=== PATIENT | female | born 1935 | race Caucasian/White ===

== ENCOUNTER → 2016-12-02 | Outpatient (CLI) | payer OTHER ==
[~2016-12-02] MED LIST: ADULT LOW DOSE81 MG PO; AMLODIPINE; ASPIR 8181 MG PO; ASPIRIN81 M2 PO; ATENOLOL 25 MG25 M1 PO; ATIVAN0.5 MG PO; AZITHROMYCIN 2250 MG PO; BACLOFEN 10MG T10 MG PO; BIOTIN1 MG PO; CALCIUM 500 +1 EAC5 PO; COUMADIN; DILTIAZEM 24HR120 M2 PO; DILTIAZEM 24HR240 M1 PO; DOXYCYCLINE 10100 M1 PO; ELIQUIS2.5 MG PO; FLEXERIL PO; FLONASE 0.05%50 MCG NASAL; FUROSEMIDE; HYDRALAZINE; IBUPROFEN 200200 M1 PO; K-DUR 20 MEQ T20 MEQ PO; MAG-OX 400 TAB400 M1 PO; MAGNESIUM OXID200 MG; MAGNESIUM OXID200 MG PO; MECLIZINE HCL25 MG PO; MYRBETRIQ25 MG PO; NORCO 5-325 TA1 EACH PO; PLAVIX 75 MG TA75 M1 PO; PREDNISONE 20 M20 MG PO; SYNTHROID; TIZANIDINE HCL4 MG PO; TOPROL; VITAMINC500 PO; ZPAK PO; [UNRECOGNIZED DRUG - CODE] PO
== END ==
LOC: ULTRA 14:22
DX: M79.605 Pain in left leg (principal)

== ENCOUNTER 2016-12-05 16:04 | Emergency (ER) | payer OTHER ==
[~2016-12-05] VITALS: Ht 167.6 cm; Wt 44.5 kg
[2016-12-05 16:40] LABS: HEMATOCRIT 50.6 % (37.0-47.0); HEMOGLOBIN 17.7 gm/dL (12.0-15.0); MCH 36.6 pg (26.0-34.0); MCHC 34.9 % (28.0-37.0); MCV 104.7 fL (80.0-100.0); RBC 4.83 mil/uL (4.20-5.00); WBC 7.4 thou/uL (4.0-11.0)
[2016-12-05 16:48] LABS: CALCIUM 9.1 mg/dL (8.5-10.1); CREATININE 0.7 mg/dL (0.6-1.3); POTASSIUM 3.7 mmol/L (3.5-5.1)
[2016-12-05 16:54] LABS: ALBUMIN 3.9 g/dL (3.4-5.0); TOTAL BILIRUBIN 0.6 mg/dL (<0.1-1.0); TOTAL PROTEIN 7.5 g/dL (6.4-8.2)
[2016-12-05 16:56] LABS: APTT 28.1 Seconds (24.5-32.8); INR 1.1; PROTIME 11.9 Seconds (9.3-11.4)
== END 2016-12-05 17:38 | disposition home or self-care (01) ==
LOC: ER 16:04
PROVIDERS: Emergency Medicine
DX: I77.1 Stricture of artery (principal); I73.9 Peripheral vascular disease, unspecified; F17.210 Nicotine dependence, cigarettes, uncomplicated; F10.99 Alcohol use, unspecified with unspecified alcohol-induced disorder; Z88.5 Allergy status to narcotic agent; Z88.1 Allergy status to other antibiotic agents; Z88.0 Allergy status to penicillin; Z88.2 Allergy status to sulfonamides

== ENCOUNTER → 2016-12-07 | Outpatient (CLI) | payer OTHER | LOC: RAD 01:49 | DX: Z12.31 Encounter for screening mammogram for malignant neoplasm of breast (principal) ==

== ENCOUNTER → 2016-12-08 | Outpatient (CLI) | payer OTHER ==
[~2016-12-08] VITALS: Ht 167.6 cm; Wt 44.0 kg
--- NOTE | ~2016-12-08 | CATHLAB ---
[facility] [employer]ank [employer] [place] [address] INVASIVE PROCEDURE REPORT Name: RICHARDGILL HERNANDEZ Room #: REG CL [facility]#: [id number] Admission: 12/08/16 Attend Phys: Henrry Dwyer, Discharge: Date of : 39 Date of Service: 12/08/16 1225 Report #: [id number] THIS REPORT FOR: //name// CC: Henrry Mobley DATE OF SERVICE: 12/08/2016 NAME OF STUDY: 1. Aortogram, bilateral lower extremity runoff, angiogram. 2. Bilateral renal angiography. INDICATIONS: Peripheral arterial disease. Atrial fibrillation. Coronary artery disease. Tobacco abuse. Previous bilateral SFA stents in May 2015, including drug-coated balloon angioplasty. Onset of right calf and foot pain a couple of weeks ago. Currently, the patient states no pain in either lower extremity. No rest pain or ulcers. Both feet are slightly cool and cyanotic. Motor and sensory are intact. PROCEDURE: Procedure and risk of aortogram and runoff were discussed with the patient and consent obtained. The patient's right groin was prepped and draped in normal sterile fashion. Ultrasound was used to interrogate the right common femoral artery and showed this to be patent. Under ultrasound guidance, access to the right common femoral artery was obtained and a 5-Luxembourgish sheath was placed. Through this, a flush catheter was placed in the abdominal aorta and AP aortogram performed. Catheter was positioned at the aortic bifurcation and both oblique views of the pelvis were obtained. Catheter was positioned to the right external iliac artery and right leg runoff angiogram was obtained. Catheter was exchanged for a visceral catheter, which was placed in the right renal artery and right renal angiogram was obtained. Catheter was placed in left renal artery and left renal angiogram was obtained. Catheter was then positioned to the level of the left common femoral artery and left leg angiogram obtained. Catheter and sheaths were removed and hemostasis obtained using manual pressure. No immediate complications. FINDINGS: AORTOGRAM: There is 1 right and 1 left renal artery. Moderate plaque in the infrarenal abdominal aorta without high grade stenosis. Moderate plaquing in both common iliac arteries, but no evidence of flow limiting stenosis. Moderate plaque throughout both external iliac arteries, more prominent on the right, but again no flow limiting stenosis. The common femoral and profunda femoral arteries are patent bilaterally. RIGHT RENAL ANGIOGRAM: Renal artery shows good patency. No branch vessel stenosis. [address] [address] INVASIVE PROCEDURE REPORT Name: GILL RAMOS Room #: REG [facility]#: [id number] Admission: 12/08/16 Attend Phys: Henrry Dwyer, Discharge: Date of : 39 Date of Service: 12/08/16 1225 Report #: [id number] LEFT RENAL ANGIOGRAM: Moderate plaque causes minimal stenosis at the origin with artery otherwise being widely patent. RIGHT LEG: Previous stent throughout the mid and distal right SFA shows complete occlusion. Stent was initially placed for complete occlusion, so the patient is essentially at baseline. The distal SFA refills and is normal in caliber. The popliteal artery has mild stenosis in its mid portion, but this is not flow limiting. The posterior tibial artery shows complete occlusion throughout. The anterior tibial artery has minimal stenosis in its proximal portion and this shows good patency until its distal most portion. The peroneal artery is a satisfactory size vessel and is patent to the level of the ankle to refills small plantar arteries. LEFT LEG: Occlusion throughout the superficial femoral artery, which refills in its distal portion. The popliteal artery shows mild stenosis, which is not flow limiting. There is satisfactory 3-vessel runoff into the foot. IMPRESSION: Interval development of bilateral superficial femoral artery occlusions within the prior stents as fully reviewed above. The distal superficial femoral arteries refill bilaterally with mild bilateral popliteal stenoses. Two-vessel runoff on the right and 3-vessel runoff on the left as described. Given currently the patient has no rest pain or skin breakdown and also is not complaining of significant claudication symptoms, no further intervention is felt warranted at this time. I did instruct the patient on a walking program to hopefully increase her walking distance. I also recommended she stop smoking. She will follow up with Dr. Floyd at [facility] as previously scheduled. <ELECTRONICALLY SIGNED> By: Henrry Dwyer MD 12/09/16 1036 1225 1355 Henrry Dwyer MD /nt
[2016-12-08 09:39] VITALS: BP 150/93
[2016-12-08 09:48] LABS: HEMATOCRIT 50.4 % (37.0-47.0); HEMOGLOBIN 17.3 gm/dL (12.0-15.0); MCH 36.3 pg (26.0-34.0); MCHC 34.3 % (28.0-37.0); MCV 106.1 fL (80.0-100.0); RBC 4.75 mil/uL (4.20-5.00); RDW 14.1 % (10.5-14.5); WBC 8.6 thou/uL (4.0-11.0)
[2016-12-08 09:55] LABS: CALCIUM 8.8 mg/dL (8.5-10.1); CREATININE 0.9 mg/dL (0.6-1.3); POTASSIUM 4.4 mmol/L (3.5-5.1)
== END ==
LOC: CATH 07:22
PROVIDERS: Nuclear Medicine Nuclear Cardiology
DX: I70.203 Unspecified atherosclerosis of native arteries of extremities, bilateral legs (principal); I70.0 Atherosclerosis of aorta; I48.91 Unspecified atrial fibrillation; Z98.61 Coronary angioplasty status

== ENCOUNTER 2016-12-12 12:10 | Emergency (ER) | payer OTHER ==
[~2016-12-12] VITALS: Ht 167.6 cm; Wt 44.5 kg
--- NOTE | ~2016-12-12 | EKG ---
[address] [address] ELECTROCARDIOGRAM REPORT Name: GILL RAMOS [id number] Admission: 12/12/16 Attend Phys: Discharge: 12/12/16 Date of : 39 Report #: [id number] THIS REPORT FOR: //name// [facility] ED Test Date: 2016-12-12 Test Time: 12:23:01 Pat Name: GILL RAMOS Department: Room: Gender: F [employer]: JOSÉ LUIS : 1935 Requested By: Elmer Watson Order Number: [id number] MD: Jeffrey Cook Measurements Intervals [place] Rate: 89 P: [place]: QRS: 67 QRSD: 65 T: 57 QT: 441 QTc: 537 Interpretive Statements Atrial fibrillation Probable anteroseptal infarct, old Compared to ECG 08/21/2016 19:08:59 No significant changes Electronically Signed On 12-13-2016 8:15:41 [employer] TRA[employer] by Jeffrey Cook [email or web address] <ELECTRONICALLY SIGNED> By: Jeffrey Cook MD, [facility] 12/13/16 0815 1223 22 Jeffrey Cook MD, FACC /EPI
== END 2016-12-12 15:14 | disposition home or self-care (01) ==
LOC: ER 12:10
DX: R20.0 Anesthesia of skin (principal); Z90.710 Acquired absence of both cervix and uterus; Z98.890 Other specified postprocedural states; F17.210 Nicotine dependence, cigarettes, uncomplicated; F10.99 Alcohol use, unspecified with unspecified alcohol-induced disorder; Z88.5 Allergy status to narcotic agent; Z88.1 Allergy status to other antibiotic agents; Z88.0 Allergy status to penicillin; Z88.2 Allergy status to sulfonamides; Z88.8 Allergy status to other drugs, medicaments and biological substances

== ENCOUNTER → 2017-03-03 | Outpatient (CLI) | payer OTHER ==
--- NOTE | ~2017-03-03 | 2DMMODE ---
[facility] [place] [address] 2 D/M-MODE ECHOCARDIOGRAM Name: GILL RAMOS Room #: REG CL [facility]#: [id number] Admission: 03/03/17 Attend Phys: Ubaldo Floyd MD Discharge: Date of : 39 Date of Service: 03/03/17 1027 Report #: [id number] THIS REPORT FOR: //name// APPROVED REPORT Study performed: 03/03/2017 08:47:41 EXAM: Comprehensive 2D, Doppler, and color-flow Echocardiogram Patient Location: Out-Patient Blood Pressure: 101/66 mmHg HR: 80 bpm Rhythm: Atrial Fibrillation Other Information Study Quality: Adequate/Low parasternal window Technically limited study due to thin body habitus and breast implants.. Indications Atrial Fibrillation Hx: CAD, PVD, COPD, HTN 2D Dimensions RVDd: 36.00 mm LVEF(%): 48.56 (>50%) IVSd: 8.49 (7-11mm) LVOT Diam: 18.70 (18-24mm) LVDd: 31.70 mm PWd: 7.49 (7-11mm) LVDs: 24.21 (25-40mm) Aortic Root: 30.90 mm Coker's LVEF: 48.56 % Volumes Left Atrial Volume (Systole) Single Plane 4CH: 60.14 mL Single Plane 2CH: 51.72 mL LA ESV Index: 42.00 mL/m2 Aortic Valve AoV Peak Agapito.: 1.04 m/s AO Peak Gr.: 4.37 mmHg LV Max P.21 mmHg LV Max: 0.74 m/s Mitral Valve MV Decel. Time: 166.27 ms [facility] [place] [address] [place] [address] 2 D/M-MODE ECHOCARDIOGRAM Name: GILL RAMOS Room #: REG [facility]#: [id number] Admission: 03/03/17 Attend Phys: Ubaldo Floyd MD Discharge: Date of : 39 Date of Service: 03/03/17 1027 Report #: [id number] E Max Agapito.: 0.93 m/s Pulmonary Valve PV Peak Agapito.: 0.65 m/s PV Peak Gr.: 1.71 mmHg Tricuspid Valve TR Peak Agapito.: 2.47 m/s RAP Estimate: 10.00 mmHg TR Peak Gr.: 24.37 mmHg RVSP: 34.00 mmHg Left Ventricle The left ventricle is normal size. There is normal LV segmental wall motion. There is normal left ventricular wall thickness. Left ventricular systolic function is normal. LVEF is 50-55%. This study is not technically sufficient to allow evaluation of the LV diastolic function due to atrial fibrillation. Right Ventricle The right ventricle is normal size. The right ventricular systolic function is normal. Atria Left atrium is moderately dilated. Right atrium is moderately dilated. Aortic Valve Aortic valve is thickened and calcified. Trace aortic regurgitation. There is no aortic valvular stenosis. Mitral Valve Mitral valve leaflets are thickened. Mild mitral annular calcification. Mild to moderate mitral regurgitation. Tricuspid Valve The tricuspid valve is normal in structure. There is moderate tricuspid regurgitation. The right atrial pressure is estimated at 10 mmHg. There is mild pulmonary hypertension with an estimated PAP of 34mmHg. Pulmonic Valve The pulmonary valve is normal in structure. Trace pulmonic regurgitation. Great Vessels The aortic root is normal in size. Ascending aorta is not well visualized. Descending aorta is not well visualized. IVC is dilated and collapses >50% with inspiration. [facility] [address] [place] [address] 2 D/M-MODE ECHOCARDIOGRAM Name: GILL RAMOS Room #: REG [facility]#: [id number] Admission: 03/03/17 Attend Phys: Ubaldo Floyd MD Discharge: Date of : 39 Date of Service: 03/03/17 1027 Report #: [id number] Pericardium There is no pericardial effusion. <Conclusion> The left ventricle is normal size. The right ventricle is normal size. Left atrium is moderately dilated. Right atrium is moderately dilated. There is no aortic valvular stenosis. Mild to moderate mitral regurgitation. There is moderate tricuspid regurgitation. The right atrial pressure is estimated at 10 mmHg. There is mild pulmonary hypertension with an estimated PAP of 34mmHg. <ELECTRONICALLY SIGNED> By: Ubaldo Floyd MD 03/03/17 1027 1027 1027 Ubaldo Floyd MD /INF
== END ==
LOC: CV 07:08
DX: I48.91 Unspecified atrial fibrillation (principal); I25.10 Atherosclerotic heart disease of native coronary artery without angina pectoris; I73.9 Peripheral vascular disease, unspecified; J44.9 Chronic obstructive pulmonary disease, unspecified; I10 Essential (primary) hypertension

== ENCOUNTER 2017-04-18 20:31 | Emergency (ER) | payer OTHER ==
[~2017-04-18] VITALS: Ht 167.6 cm; Wt 44.0 kg
[2017-04-18] MEDS ORDERED: CARDIZEM CD180 MG PO (20:41)
[2017-04-18] MEDS ORDERED: FENTANYL PA50 MCG/HR TRANSDERM (21:40)
[2017-04-18] MEDS ORDERED: APAP500 PO (22:29)
== END 2017-04-18 22:56 | disposition home or self-care (01) ==
LOC: ER 20:31
DX: S42.211A Unspecified displaced fracture of surgical neck of right humerus, initial encounter for closed fracture (principal); I48.91 Unspecified atrial fibrillation; F17.210 Nicotine dependence, cigarettes, uncomplicated; Z85.3 Personal history of malignant neoplasm of breast; Z98.890 Other specified postprocedural states; Z90.710 Acquired absence of both cervix and uterus; Z90.89 Acquired absence of other organs; Z88.5 Allergy status to narcotic agent; Z88.6 Allergy status to analgesic agent; Z88.1 Allergy status to other antibiotic agents; Z88.0 Allergy status to penicillin; Z88.2 Allergy status to sulfonamides; Z88.8 Allergy status to other drugs, medicaments and biological substances; W08.XXXA Fall from other furniture, initial encounter; Y93.89 Activity, other specified; Y92.89 Other specified places as the place of occurrence of the external cause; Y99.8 Other external cause status

== ENCOUNTER 2017-04-19 06:29 | Inpatient (IN) | payer OTHER ==
[~2017-04-19] VITALS: Ht 167.6 cm; Wt 45.8 kg
--- NOTE | ~2017-04-19 | HC ---
[facility] [place] [address] CONSULTATION Name: GILL RAMOS Room #: 543-P ADM IN M.R.#: [id number] Admission: 04/19/17 Attend Phys: Jackeline Lyle Discharge: Date of : 39 Report #: [id number] THIS REPORT FOR: //name// CC: Jaime Lyle CHIEF COMPLAINT: Right shoulder pain. HISTORY OF PRESENT ILLNESS: The patient is a 81-year-old female who was admitted through the emergency department at [facility] this morning for increased pain in her right shoulder following a right humeral surgical neck fracture. The patient reports that she fell at home yesterday, she was seen at [facility] where she had x-rays taken and was diagnosed with right shoulder fracture. She was discharged from the emergency department yesterday. She had progressively worsening pain in the right shoulder and was returned to the emergency department today. She was admitted at that point. The patient denies any prior problems with her right shoulder. The patient reports that she lives alone in her own home. ALLERGIES: HYDROCODONE, OXYCODONE, AMOXICILLIN, BELLADONNA, PENICILLIN, PHENOBARBITAL, SULFA. CURRENT MEDICATIONS: Please see medical record, but include fentanyl and acetaminophen. PAST MEDICAL HISTORY: Significant for back pain, AFib, seasonal allergies and hernia. PAST SURGICAL HISTORY: Significant for double mastectomy, hernia repair, hysterectomy, hemorrhoidectomy, tonsillectomy. SOCIAL HISTORY: The patient is a current half pack a day smoker for 20 years. The patient drinks alcohol on occasion. She lives at home alone and ambulates without assistance. PHYSICAL EXAMINATION: VITAL SIGNS: Temperature 36.7 degrees Celsius, blood pressure 137/73, pulse is 92. GENERAL: The patient is awake and alert, in no acute distress. EXTREMITIES: Right upper extremity is mobilized in a sling, this is neurovascularly intact. The patient has minor discomfort in the shoulder when trying to move the fingers and wrist. Right shoulder is tender to palpation. Range of motion not attempted today due to pain. LABORATORY DATA: Hemoglobin 16.1. Glucose 109. X-Ray: Radiographs performed on 04/18 show a fracture of the surgical neck of the proximal humerus. This is non-displaced with mild anterior angulation and [address] [address] CONSULTATION Name: GILL RAMOS Room #: 543-P [facility] IN M.R.#: [id number] Admission: 04/19/17 Attend Phys: Jackeline Lyle Discharge: Date of : 39 Report #: [id number] impaction. ASSESSMENT: Right surgical neck fracture of the proximal humerus. PLAN: Discussed with the patient diagnosis and treatment options. At this point, the radiographs from the emergency department show no displacement of the fracture and we discussed treatment options today. The patient is not interested in operative intervention. We discussed conservative treatment options that would include following the shoulder with serial radiographs to assess fracture healing. We also discussed the potential need for operative intervention if further displacement were to occur at the fracture site. The need for PT/OT was reviewed with the patient as well. We will see the patient 7-10 days post injury in the outpatient clinic for follow up radiographs. <ELECTRONICALLY SIGNED> By: THERESA Lou 04/20/17 1010 1619 0813 THERESA Lou /nt
--- NOTE | ~2017-04-19 | HC ---
[facility] [place] [address] CONSULTATION Name: GILL RAMOS Room #: 543-P [facility] IN M.R.#: [id number] Admission: 04/19/17 Attend Phys: Jackeline Lyle Discharge: 04/20/17 Date of : 39 Report #: [id number] THIS REPORT FOR: //name// CC: Jaime Lyle HISTORY OF PRESENT ILLNESS: The patient is a 81-year-old white female who apparently fell standing up from a couch at home. She was initially seen in the Emergency Department, diagnosed with a humeral surgical neck fracture. She was placed in a sling. Was discharged home. She is a rather anxious lady and apparently did not know to fill her pain medication prescription. She ended up coming back in to [facility] and this time was admitted as she was unable to care for herself. She lives at home alone. Orthopedics has seen her and are recommending continued conservative management with followup at a later date. We are seeing her in rehabilitation medicine consultation. PAST MEDICAL HISTORY: Includes double mastectomy for breast cancer, history of hernia repair, atrial fibrillation, back pain, hemorrhoidectomy, and tonsillectomy. PAST SURGICAL HISTORY: Is as noted above. HABITS: Tobacco, half a pack per day for 20 years, current every day smoker, history of ETOH only on special occasions. MEDICATIONS: Please see the full medication listing. ALLERGIES: She has a history of HYDROCODONE, OXYCODONE, AMOXICILLIN, PENICILLIN, PHENOBARBITAL, SULFA. SOCIAL HISTORY: Lives in a house alone, multilevel 6 steps in, did not utilize gait aids premorbidly. She does have a friend that has been taking her back and forth to the Emergency Department by support. She indicates she does not have any family in the area. REVIEW OF SYSTEMS: She is quite anxious wanting to discharge back home. Did not offer any current complaints of chest pain, shortness of breath or abdominal discomfort. No focal extremity pain complaints. Her shoulder pain appears under control at the current time. PHYSICAL EXAMINATION: GENERAL: She is a small statured, thin 81-year-old white female in no obvious distress. VITAL SIGNS: Temperature 97.4, pulse 65, respirations 16, blood pressure 118/61. NEUROLOGIC: She is alert, pleasant, and anxious. She kept telling me how she has never been through anything like this and she needs to get back home. Her [address] [address] CONSULTATION Name: GILL RAMOS Room #: 543-P [facility] IN M.R.#: [id number] Admission: 04/19/17 Attend Phys: Jackeline Lyle Discharge: 04/20/17 Date of : 39 Report #: [id number] facies appeared to be symmetric. She has functional range of motion and strength of the left upper extremity and bilateral lower extremities. Right upper extremity is in a dontae sling. No swelling of the right hand. She was able to sit to stand for me essentially independently and could ambulate in the room with good balance and no gait aid. ASSESSMENT: A 81-year-old white female with the following problem list: 1. Right humeral surgical neck fracture being held conservatively. 2. Anxiety. 3. Lives alone and has multiple steps. 4. Tobacco abuse. 5. Past history of double mastectomy. 6. Atrial fibrillation. PLAN: The patient does not meet criteria for an acute [address] [place] [address] inpatient rehabilitation stay. We discussed with OT and case management. The patient needs assistance for her ADLs, dressing and darning activities and appears to have decreased insight into her inability to do this with her anxiety. Case management will focus further on the patient's friend and see if further assistance can come in that regard versus looking at other options for her for discharge planning. Thank you for asking us to assist in this patient's care. By: 1025 1837 Henrry Duong MD /nt
[~2017-04-19 06:29] MED LIST changes: +APAP500 PO; +CARDIZEM CD180 MG PO; +FENTANYL PA50 MCG/HR TRANSDERM
[2017-04-19 06:31] VITALS: BP 163/84
[2017-04-19 07:04] LABS: ABSOLUTE NEUTROPHILS 6.5 thou/uL (1.4-8.2); BASOPHILS 0.5 % (0.0-2.0); EOSINOPHILS 0.5 % (0.0-3.0); HEMATOCRIT 47.1 % (37.0-47.0); HEMOGLOBIN 16.1 gm/dL (12.0-15.0); LYMPHOCYTES 19.2 % (24.0-44.0); MCH 36.3 pg (26.0-34.0); MCHC 34.3 g/dL (28.0-37.0); MCV 105.9 fL (80.0-100.0); MONOCYTES 7.3 % (1.0-8.0); PLATELET COUNT 203 thou/uL (150-400); POLYS 72.5 % (36.0-66.0); RBC 4.45 mil/uL (4.20-5.00); RDW 13.8 % (10.5-14.5)
[2017-04-19 07:08] LABS: MANUAL DIFF NO
[2017-04-19 07:14] LABS: CALCIUM 8.9 mg/dL (8.5-10.1); CREATININE 0.7 mg/dL (0.6-1.0)
[2017-04-19 10:01] VITALS: BP 137/73
[2017-04-19 20:20] VITALS: BP 140/100
[2017-04-20] VITALS (8 sets, daily range): BP systolic 100–129; BP diastolic 61–83
== END 2017-04-20 17:49 | disposition home health service (06) | DRG 563 ==
LOC: ER 06:29 → EROBS 07:39 → 5S 09:19
PROVIDERS: Emergency Medicine
DX: S42.211A Unspecified displaced fracture of surgical neck of right humerus, initial encounter for closed fracture (principal); I48.91 Unspecified atrial fibrillation; F17.210 Nicotine dependence, cigarettes, uncomplicated; F41.9 Anxiety disorder, unspecified; Z60.2 Problems related to living alone; W18.39XA Other fall on same level, initial encounter; Y93.89 Activity, other specified; Z85.3 Personal history of malignant neoplasm of breast; Z90.13 Acquired absence of bilateral breasts and nipples; Z90.710 Acquired absence of both cervix and uterus; Z90.49 Acquired absence of other specified parts of digestive tract; Z88.6 Allergy status to analgesic agent; Z88.1 Allergy status to other antibiotic agents; Z88.2 Allergy status to sulfonamides; Z88.0 Allergy status to penicillin; Z88.8 Allergy status to other drugs, medicaments and biological substances; Y92.89 Other specified places as the place of occurrence of the external cause; Y99.8 Other external cause status

== ENCOUNTER → 2017-10-20 | Outpatient (CLI) | payer OTHER | LOC: HYPER 10-19 13:49 | DX: L60.8 Other nail disorders (principal); J44.9 Chronic obstructive pulmonary disease, unspecified; I48.2 Chronic atrial fibrillation; I10 Essential (primary) hypertension; I73.9 Peripheral vascular disease, unspecified; I25.10 Atherosclerotic heart disease of native coronary artery without angina pectoris; F17.210 Nicotine dependence, cigarettes, uncomplicated; Z90.710 Acquired absence of both cervix and uterus; Z72.89 Other problems related to lifestyle ==

== ENCOUNTER → 2017-10-25 | Outpatient (CLI) | payer OTHER | LOC: ULTRA 09:53 | DX: I73.9 Peripheral vascular disease, unspecified (principal); J44.9 Chronic obstructive pulmonary disease, unspecified; I10 Essential (primary) hypertension; I48.2 Chronic atrial fibrillation; M79.605 Pain in left leg; M79.604 Pain in right leg ==

== ENCOUNTER → 2017-12-07 | Outpatient (CLI) | payer OTHER ==
[~2017-12-07] MED LIST changes: +BISACODYL SUPP10 MG RECTAL; +SENNA8.6 MG PO
== END ==
LOC: RAD 01:18
DX: Z12.31 Encounter for screening mammogram for malignant neoplasm of breast (principal)

== ENCOUNTER → 2018-02-02 | Outpatient (CLI) | payer OTHER | LOC: ULTRA 08:50 | DX: I70.203 Unspecified atherosclerosis of native arteries of extremities, bilateral legs (principal); Z88.1 Allergy status to other antibiotic agents; Z88.5 Allergy status to narcotic agent; Z88.8 Allergy status to other drugs, medicaments and biological substances; Z88.0 Allergy status to penicillin; Z88.2 Allergy status to sulfonamides ==

== ENCOUNTER 2018-05-09 15:09 | Emergency (ER) | payer OTHER ==
[~2018-05-09] VITALS: Ht 165.1 cm; Wt 42.6 kg
--- NOTE | ~2018-05-09 | EKG ---
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 : 1935 Requested By: Donovan Silva Order Number: [id number] MD: Jose Angel Field Measurements Intervals [place] Rate: 90 P: [place]: QRS: 83 QRSD: 159 T: 57 QT: 348 QTc: 426 Interpretive Statements Atrial fibrillation Nonspecific intraventricular conduction delay Probable anteroseptal infarct, old Compared to ECG 12/12/2016 12:23:01 Intraventricular conduction delay now present Myocardial infarct finding still present Electronically Signed On 05-10-2018 7:58:49 CDT by Jose Angel Field [email or web address] <ELECTRONICALLY SIGNED> By: Jose Angel Field MD 05/10/18 0758 1704 1704 Jose Angel Field MD /[facility]
[~2018-05-09 15:09] MED LIST changes: -BISACODYL SUPP10 MG RECTAL; -SENNA8.6 MG PO
[2018-05-09 17:23] LABS: URINE BILIRUBIN NEGATIVE (Negative); URINE BLOOD NEGATIVE (Negative); URINE CLARITY CLEAR; URINE COLOR YELLOW; URINE GLUCOSE-RANDOM* NEGATIVE (Negative); URINE KETONES NEGATIVE (Negative); URINE LEUKOCYTES-REFLEX NEGATIVE (Negative); URINE NITRITE-REFLEX NEGATIVE (Negative); URINE PROTEIN (DIPSTICK) NEGATIVE (Negative); URINE SPECIFIC GRAVITY <= 1.005 (1.005-1.035); URINE UROBILINOGEN 0.2 E.U./dl (0.2-1.0)
[2018-05-09 17:23] LABS: ABSOLUTE NEUTROPHILS 5.2 thou/uL (1.4-8.2); BASOPHILS 0.6 % (0.0-2.0); EOSINOPHILS 1.3 % (0.0-3.0); HEMATOCRIT 39.4 % (37.0-47.0); HEMOGLOBIN 13.8 gm/dL (12.0-15.0); LYMPHOCYTES 24.8 % (24.0-44.0); MCH 34.2 pg (26.0-34.0); MCV 97.7 fL (80.0-100.0); MONOCYTES 7.1 % (1.0-8.0); PLATELET COUNT 344 thou/uL (150-400); POLYS 66.2 % (36.0-66.0); RBC 4.03 mil/uL (4.20-5.00); WBC 7.9 thou/uL (4.0-11.0)
[2018-05-09 17:39] LABS: ANION GAP 8 mmol/L (7-16); BUN 15 mg/dL (7-18); CALCIUM 9.2 mg/dL (8.5-10.1); CHLORIDE 103 mmol/L (98-107); CO2 29 mmol/L (21-32); CREATININE 0.9 mg/dL (0.6-1.0); GLUCOSE 99 mg/dL (74-106); SODIUM 140 mmol/L (136-145)
[2018-05-09 17:47] LABS: TROPONIN-I < 0.04 ng/mL (<0.06)
== END 2018-05-09 18:15 | disposition home or self-care (01) ==
LOC: ER 15:09
PROVIDERS: Physician Assistant
DX: R60.0 Localized edema (principal); I48.91 Unspecified atrial fibrillation; Z90.710 Acquired absence of both cervix and uterus; Z90.13 Acquired absence of bilateral breasts and nipples; F17.210 Nicotine dependence, cigarettes, uncomplicated; Z88.5 Allergy status to narcotic agent; Z88.2 Allergy status to sulfonamides; Z88.1 Allergy status to other antibiotic agents

== ENCOUNTER 2018-05-25 17:42 | Emergency (ER) | payer OTHER ==
[~2018-05-25] VITALS: Ht 167.6 cm; Wt 36.3 kg
[2018-05-25] MEDS ORDERED: MYRBETRIQ25 MG PO (18:37)
[2018-05-25 18:41] LABS: ABSOLUTE NEUTROPHILS 5.7 thou/uL (1.4-8.2); BASOPHILS 0.8 % (0.0-2.0); EOSINOPHILS 3.5 % (0.0-3.0); HEMATOCRIT 38.5 % (37.0-47.0); HEMOGLOBIN 13.5 gm/dL (12.0-15.0); LYMPHOCYTES 24.2 % (24.0-44.0); MCH 34.2 pg (26.0-34.0); MCHC 35.2 g/dL (28.0-37.0); MCV 97.3 fL (80.0-100.0); PLATELET COUNT 229 thou/uL (150-400); POLYS 66.5 % (36.0-66.0); RBC 3.96 mil/uL (4.20-5.00); RDW 13.6 % (10.5-14.5); WBC 8.5 thou/uL (4.0-11.0)
[2018-05-25 18:50] LABS: CREATININE 1.1 mg/dL (0.6-1.0); POTASSIUM 3.9 mmol/L (3.5-5.1)
[2018-05-25 18:54] LABS: INR 1.1; PROTIME 11.2 Seconds (9.3-11.4)
[2018-05-25 18:56] LABS: TOTAL BILIRUBIN 0.5 mg/dL (<0.1-1.0); TOTAL PROTEIN 7.9 g/dL (6.4-8.2)
[2018-05-26] MEDS ORDERED: BISACODYL SUPP10 MG RECTAL (08:41)
== END 2018-05-25 19:32 | disposition left against medical advice (07) ==
LOC: ER 17:42
PROVIDERS: Physician Assistant
DX: K92.2 Gastrointestinal hemorrhage, unspecified (principal); I48.91 Unspecified atrial fibrillation; K59.00 Constipation, unspecified; F17.210 Nicotine dependence, cigarettes, uncomplicated; Z92.29 Personal history of other drug therapy; Z85.3 Personal history of malignant neoplasm of breast; Z90.13 Acquired absence of bilateral breasts and nipples; Z90.710 Acquired absence of both cervix and uterus; Z90.89 Acquired absence of other organs; Z88.8 Allergy status to other drugs, medicaments and biological substances; Z88.1 Allergy status to other antibiotic agents; Z88.0 Allergy status to penicillin; Z88.2 Allergy status to sulfonamides

== ENCOUNTER 2018-05-26 07:40 | Emergency (ER) | payer OTHER ==
[~2018-05-26] VITALS: Ht 167.6 cm; Wt 36.3 kg
--- NOTE | ~2018-05-26 | EKG ---
[place] [address] [facility] [place] [place] [address] ELECTROCARDIOGRAM REPORT Name: GILL RAMOS [id number] Admission: 05/26/18 Attend Phys: Discharge: 05/26/18 Date of : 39 Report #: [id number] THIS REPORT FOR: //name// [facility] ED Test Date: 2018-05-26 Test Time: 08:22:10 Pat Name: GILL RAMOS Department: Room: Gender: F Facilities Specialist: [facility] : 1935 Requested By: Arielle Coreas Order Number: [id number] MD: Jeffrey Cook Measurements Intervals [place] Rate: 107 P: [place]: QRS: 80 QRSD: 77 T: 47 QT: 321 QTc: 429 Interpretive Statements Atrial fibrillation Low voltage, extremity leads Probable anteroseptal infarct, old Compared to ECG 05/09/2018 17:04:52 no significant change was found Electronically Signed On 05-28-2018 13:55:41 CDT by Jeffrey Cook [email or web address] <ELECTRONICALLY SIGNED> By: Jeffrey Cook MD, [facility] 05/28/18 1355 1 1 Jeffrey Cook MD, [facility] /EPI
[2018-05-26] MEDS ORDERED: BISACODYL SUPP10 MG RECTAL (08:41)
== END 2018-05-26 09:05 | disposition home or self-care (01) ==
LOC: ER 07:40
DX: K59.00 Constipation, unspecified (principal); I48.91 Unspecified atrial fibrillation; F17.210 Nicotine dependence, cigarettes, uncomplicated; Z98.890 Other specified postprocedural states; Z90.89 Acquired absence of other organs; Z88.5 Allergy status to narcotic agent; Z88.1 Allergy status to other antibiotic agents; Z88.6 Allergy status to analgesic agent; Z88.2 Allergy status to sulfonamides; Z88.8 Allergy status to other drugs, medicaments and biological substances

== ENCOUNTER 2018-05-28 07:06 | Emergency (ER) | payer OTHER ==
[~2018-05-28] VITALS: Ht 167.6 cm; Wt 38.6 kg
[~2018-05-28 07:06] MED LIST changes: +BISACODYL SUPP10 MG RECTAL
[2018-05-28] MEDS ORDERED: SENNA8.6 MG PO (14:27)
== END 2018-05-28 09:34 | disposition left against medical advice (07) ==
LOC: ER 07:06
DX: K56.41 Fecal impaction (principal); F17.210 Nicotine dependence, cigarettes, uncomplicated; I48.91 Unspecified atrial fibrillation; Z85.3 Personal history of malignant neoplasm of breast; Z90.13 Acquired absence of bilateral breasts and nipples; Z90.710 Acquired absence of both cervix and uterus; Z90.89 Acquired absence of other organs; Z88.8 Allergy status to other drugs, medicaments and biological substances; Z88.1 Allergy status to other antibiotic agents; Z88.0 Allergy status to penicillin; Z88.2 Allergy status to sulfonamides

== ENCOUNTER 2018-05-28 12:40 | Emergency (ER) | payer OTHER ==
[~2018-05-28] VITALS: Ht 167.6 cm; Wt 38.1 kg
[2018-05-28] MEDS ORDERED: SENNA8.6 MG PO (14:27)
== END 2018-05-28 14:52 | disposition home or self-care (01) ==
LOC: ER 12:40
DX: K59.00 Constipation, unspecified (principal); M54.9 Dorsalgia, unspecified; F17.210 Nicotine dependence, cigarettes, uncomplicated; I48.91 Unspecified atrial fibrillation; Z90.13 Acquired absence of bilateral breasts and nipples; Z85.3 Personal history of malignant neoplasm of breast; Z90.710 Acquired absence of both cervix and uterus; Z90.89 Acquired absence of other organs; Z88.8 Allergy status to other drugs, medicaments and biological substances; Z88.1 Allergy status to other antibiotic agents; Z88.0 Allergy status to penicillin; Z88.2 Allergy status to sulfonamides

== ENCOUNTER → 2018-08-31 | Outpatient (CLI) | payer OTHER ==
[~2018-08-31] MED LIST changes: +SENNA8.6 MG PO
--- NOTE | ~2018-08-31 | 2DMMODE ---
[facility] [place] [place] [address] 2 D/M-MODE ECHOCARDIOGRAM Name: GILL RAMOS Room #: REG CL [facility]#: [id number] Admission: 08/31/18 Attend Phys: Ubaldo Floyd MD Discharge: Date of : 39 Date of Service: 08/31/18 1444 Report #: [id number] THIS REPORT FOR: //name// APPROVED REPORT Study performed: 08/31/2018 13:14:01 EXAM: Comprehensive 2D, Doppler, and color-flow Echocardiogram Patient Location: Out-Patient Status: routine BSA: 1.43 HR: 86 bpm BP: 120/80 mmHg Other Information Study Quality: Technically Difficult/Adequate Technically limited study due to breast implants and thin body habitus. Indications COPD Atrial Fibrillation CAD Hypertension/HDD 2D Dimensions RVDd: 28.71 mm IVSd: 9.40 (7-11mm) LVOT Diam: 16.86 (18-24mm) LVDd: 29.78 mm PWd: 8.77 (7-11mm) LVDs: 24.09 (25-40mm) Aortic Root: 28.92 mm IVC: 14.00 mm Volumes Left Atrial Volume (Systole) Single Plane 4CH: 58.95 mL Single Plane 2CH: 50.23 mL LA ESV Index: 41.00 mL/m2 Aortic Valve AoV Peak Agapito.: 0.81 m/s AO Peak Gr.: 2.90 mmHg LVOT Max P.05 mmHg LVOT Max V: 0.71 m/s ROLAND Vmax: 1.97 cm2 [facility] [address] [address] 2 D/M-MODE ECHOCARDIOGRAM Name: GILL RAMOS Room #: REG CL [facility]#: [id number] Admission: 08/31/18 Attend Phys: Ubaldo Floyd MD Discharge: Date of : 39 Date of Service: 08/31/18 1444 Report #: [id number] Mitral Valve MV Decel. Time: 138.55 ms MV E Max Agapito.: 0.93 m/s IVRT: 84.20 ms Pulmonary Valve PV Peak Agapito.: 0.67 m/s PV Peak Gr.: 1.80 mmHg Tricuspid Valve TR Peak Agapito.: 2.99 m/s RAP Estimate: 5.00 mmHg TR Peak Gr.: 35.84 mmHg PA Pressure: 41.00 mmHg Left Ventricle The left ventricle is normal size. There is normal left ventricular wall thickness. The left ventricular systolic function is normal. The left ventricular ejection fraction is within the normal range. LVEF is 60-65%. This study is not technically sufficient to allow evaluation of the LV diastolic function due to atrial fibrillation. Right Ventricle The right ventricle is normal size. The right ventricular systolic function is normal. Atria Left atrium is moderately dilated. Right atrium is moderately dilated. Aortic Valve Aortic valve is calcified. Mild to moderate aortic regurgitation. There is no aortic valvular stenosis. Mitral Valve Mild mitral annular calcification. Mitral valve leaflets are mildly thickened. Mild to moderate mitral regurgitation. No evidence of mitral valve stenosis. Tricuspid Valve The tricuspid valve is normal in structure. Moderate tricuspid regurgitation. PAP is estimated at 41 mmHg. Pulmonic Valve Pulmonic valve is not well visualized. Mild pulmonic regurgitation. [facility] [place] [address] 2 D/M-MODE ECHOCARDIOGRAM Name: RICHARDGILL HERNANDEZ Room #: REG [facility]#: [id number] Admission: 08/31/18 Attend Phys: Ubaldo Floyd MD Discharge: Date of : 39 Date of Service: 08/31/181443 Report #: [id number] Great Vessels The aortic root is normal in size. IVC is normal in size and collapses >50% with inspiration. Pericardium There is no pericardial effusion. <Conclusion> The left ventricle is normal size. The left ventricular systolic function is normal. The right ventricle is normal size. Left atrium is moderately dilated. Right atrium is moderately dilated. Mild to moderate aortic regurgitation. Mild to moderate mitral regurgitation. Moderate tricuspid regurgitation. PAP is estimated at 41 mmHg. <ELECTRONICALLY SIGNED> By: Ubaldo Floyd MD 08/31/184 43 1444 Ubaldo Floyd MD /INF
== END ==
LOC: CV 09:39
DX: I08.3 Combined rheumatic disorders of mitral, aortic and tricuspid valves (principal); I10 Essential (primary) hypertension; I48.91 Unspecified atrial fibrillation; I25.10 Atherosclerotic heart disease of native coronary artery without angina pectoris; J44.9 Chronic obstructive pulmonary disease, unspecified

== ENCOUNTER → 2018-12-25 | Outpatient (CLI) | payer OTHER | LOC: RAD 02:03 | DX: Z12.31 Encounter for screening mammogram for malignant neoplasm of breast (principal) ==

== ENCOUNTER 2019-01-26 10:33 | Emergency (ER) | payer OTHER ==
[~2019-01-26] VITALS: Ht 167.6 cm; Wt 45.4 kg
[2019-01-26 12:12] VITALS: BP 123/74
== END 2019-01-26 11:47 | disposition home or self-care (01) ==
LOC: ER 10:33
DX: K11.5 Sialolithiasis (principal); I48.91 Unspecified atrial fibrillation; Z90.13 Acquired absence of bilateral breasts and nipples; Z90.710 Acquired absence of both cervix and uterus; F17.210 Nicotine dependence, cigarettes, uncomplicated; Z88.2 Allergy status to sulfonamides; Z88.0 Allergy status to penicillin; Z88.1 Allergy status to other antibiotic agents; Z88.5 Allergy status to narcotic agent; Z88.8 Allergy status to other drugs, medicaments and biological substances

== ENCOUNTER 2019-02-24 07:24 | Emergency (ER) | payer OTHER ==
[~2019-02-24] VITALS: Ht 167.6 cm; Wt 43.1 kg
[2019-02-24 08:21] LABS: URINE BILIRUBIN NEGATIVE (Negative); URINE BLOOD NEGATIVE (Negative); URINE CLARITY CLEAR; URINE COLOR YELLOW; URINE GLUCOSE-RANDOM* NEGATIVE (Negative); URINE KETONES NEGATIVE (Negative); URINE LEUKOCYTES-REFLEX NEGATIVE (Negative); URINE NITRITE-REFLEX NEGATIVE (Negative); URINE PROTEIN (DIPSTICK) NEGATIVE (Negative); URINE UROBILINOGEN 0.2 E.U./dl (0.2-1.0)
[2019-02-24] MEDS ORDERED: BISACODYL SUPP10 MG RECTAL (08:58)
[2019-02-24 09:13] VITALS: BP 134/58
== END 2019-02-24 09:14 | disposition home or self-care (01) ==
LOC: ER 07:24
PROVIDERS: Emergency Medicine
DX: K59.00 Constipation, unspecified (principal); I48.91 Unspecified atrial fibrillation; Z90.710 Acquired absence of both cervix and uterus; Z90.13 Acquired absence of bilateral breasts and nipples; Z88.0 Allergy status to penicillin; Z88.1 Allergy status to other antibiotic agents; Z88.2 Allergy status to sulfonamides; Z88.5 Allergy status to narcotic agent; Z88.8 Allergy status to other drugs, medicaments and biological substances

== ENCOUNTER 2019-02-24 15:38 | Emergency (ER) | payer OTHER ==
[~2019-02-24] VITALS: Ht 167.6 cm; Wt 40.8 kg
[2019-02-24 16:40] VITALS: BP 149/72
--- NOTE | 2019-02-25 13:42 | EKG ---
[address] [address] ELECTROCARDIOGRAM REPORT Name: GILL RAMOS Room #: DEP [facility] [id number] ������������������ Admission: 02/24/19 ������������������ Attend Phys: Discharge: 02/24/19 ������������������ Date of : 39 Report #: [id number] ����������������������������������������������������������������� [id number] THIS REPORT FOR: //name// [facility] ED Test Date: 2019-02-24 Test Time: 18:35:49 Pat Name: GILL RAMOS Department: Room: Gender: F Burglar Alarm Operator: [email or web address] : 1935 Requested By: Arielle Coreas Order Number: [id number] MD: Jeffrey Cook Measurements Intervals [place] Rate: 85 P: NV: QRS: 75 QRSD: 94 T: 38 QT: 353 QTc: 420 Interpretive Statements Atrial fibrillation Probable anteroseptal infarct, old Compared to ECG 05/26/2018 08:22:10 No significant changes Electronically Signed On 02-25-2019 13:42:05 CDT by Jeffrey Cook [email or web address] ��������������������������������������������� <ELECTRONICALLY SIGNED> ���������������������������������������� By: Jeffrey Cook MD, [facility] ��������������������������������������������� 02/25/19 1342 34 34 Jeffrey Cook MD, FAC /EPI
== END 2019-02-24 19:04 ==
LOC: ER 15:38
DX: R42 Dizziness and giddiness (principal); I48.91 Unspecified atrial fibrillation; Z90.710 Acquired absence of both cervix and uterus; Z90.13 Acquired absence of bilateral breasts and nipples; F17.210 Nicotine dependence, cigarettes, uncomplicated; Z88.0 Allergy status to penicillin; Z88.1 Allergy status to other antibiotic agents; Z88.2 Allergy status to sulfonamides; Z88.5 Allergy status to narcotic agent; Z88.8 Allergy status to other drugs, medicaments and biological substances

== ENCOUNTER → 2020-01-02 | Outpatient (CLI) | payer OTHER ==
[~2020-01-02] MED LIST changes: +TYLENOL WITH CO1 TA1 PO
== END ==
LOC: SJCVCIMAG 09:05
DX: I70.203 Unspecified atherosclerosis of native arteries of extremities, bilateral legs (principal); R22.43 Localized swelling, mass and lump, lower limb, bilateral

== ENCOUNTER → 2020-01-08 | Outpatient (CLI) | payer OTHER | LOC: SJCVC 09:53 | DX: I10 Essential (primary) hypertension (principal); I73.9 Peripheral vascular disease, unspecified; I48.0 Paroxysmal atrial fibrillation; E78.00 Pure hypercholesterolemia, unspecified; I25.10 Atherosclerotic heart disease of native coronary artery without angina pectoris; J44.9 Chronic obstructive pulmonary disease, unspecified; F17.200 Nicotine dependence, unspecified, uncomplicated ==

== ENCOUNTER 2020-01-13 11:44 | Emergency (ER) | payer OTHER ==
[~2020-01-13] VITALS: Ht 167.6 cm; Wt 44.0 kg
[~2020-01-13 11:44] MED LIST changes: -TYLENOL WITH CO1 TA1 PO
[2020-01-13 15:12] VITALS: BP 138/72
[2020-01-13] MEDS ORDERED: TYLENOL WITH CO1 TA1 PO (21:13)
== END 2020-01-13 15:42 | disposition home or self-care (01) ==
LOC: ER 11:44
DX: S50.01XA Contusion of right elbow, initial encounter (principal); S51.812A Laceration without foreign body of left forearm, initial encounter; I48.91 Unspecified atrial fibrillation; F17.210 Nicotine dependence, cigarettes, uncomplicated; Z90.710 Acquired absence of both cervix and uterus; Z88.1 Allergy status to other antibiotic agents; Z88.5 Allergy status to narcotic agent; Z88.0 Allergy status to penicillin; Z88.2 Allergy status to sulfonamides; Z88.8 Allergy status to other drugs, medicaments and biological substances; W18.30XA Fall on same level, unspecified, initial encounter; Y93.89 Activity, other specified; Y92.89 Other specified places as the place of occurrence of the external cause; Y99.8 Other external cause status

== ENCOUNTER 2020-01-13 20:05 | Emergency (ER) | payer OTHER ==
[~2020-01-13] VITALS: Ht 167.6 cm; Wt 44.0 kg
[2020-01-13] MEDS ORDERED: TYLENOL WITH CO1 TA1 PO (21:13)
[2020-01-13 21:30] VITALS: BP 148/82
== END 2020-01-13 21:30 | disposition home or self-care (01) ==
LOC: ER 20:05
DX: S80.12XA Contusion of left lower leg, initial encounter (principal); S80.11XA Contusion of right lower leg, initial encounter; M25.561 Pain in right knee; I48.91 Unspecified atrial fibrillation; F17.210 Nicotine dependence, cigarettes, uncomplicated; Z90.13 Acquired absence of bilateral breasts and nipples; Z90.710 Acquired absence of both cervix and uterus; Z90.49 Acquired absence of other specified parts of digestive tract; Z88.0 Allergy status to penicillin; Z88.1 Allergy status to other antibiotic agents; Z88.2 Allergy status to sulfonamides; Z88.6 Allergy status to analgesic agent; Z88.8 Allergy status to other drugs, medicaments and biological substances; W18.39XA Other fall on same level, initial encounter; Y93.89 Activity, other specified; Y92.89 Other specified places as the place of occurrence of the external cause; Y99.8 Other external cause status

== ENCOUNTER → 2020-01-23 | Outpatient (CLI) | payer OTHER ==
[~2020-01-23] MED LIST changes: +TYLENOL WITH CO1 TA1 PO
== END ==
LOC: RAD 11:09
DX: S22.31XA Fracture of one rib, right side, initial encounter for closed fracture (principal); M25.421 Effusion, right elbow; J90 Pleural effusion, not elsewhere classified; R91.8 Other nonspecific abnormal finding of lung field; J98.4 Other disorders of lung; W19.XXXA Unspecified fall, initial encounter; Y93.89 Activity, other specified; Y92.89 Other specified places as the place of occurrence of the external cause; Y99.8 Other external cause status

== ENCOUNTER → 2020-02-21 | Outpatient (CLI) | payer OTHER | LOC: SJCVC 10:34 | DX: I45.4 Nonspecific intraventricular block (principal); R94.31 Abnormal electrocardiogram [ECG] [EKG]; I10 Essential (primary) hypertension; I48.0 Paroxysmal atrial fibrillation; I25.10 Atherosclerotic heart disease of native coronary artery without angina pectoris; I73.9 Peripheral vascular disease, unspecified; J44.9 Chronic obstructive pulmonary disease, unspecified; M81.0 Age-related osteoporosis without current pathological fracture; Z72.0 Tobacco use ==

== ENCOUNTER 2020-03-12 11:02 | Inpatient (IN) | payer OTHER ==
[~2020-03-12] VITALS: Ht 157.5 cm; Wt 40.8 kg
--- NOTE | ~2020-03-12 | EEG ---
[facility] [place] [address] ELECTROENCEPHALOGRAM Name: GILL RAMOS Room #: 202-P ADM IN M.R.#: [id number] Admission: 03/12/20 Attend Phys: Bill Chakraborty MD Discharge: Date of : 37 Report #: [id number] THIS REPORT FOR: //name// CC: Bill Mobley DATE OF SERVICE: 03/18/2020 This patient is being evaluated for altered mental status. EEG was done by placing the electrode by standard 10-20 system of electrode placement. Both referential and sequential montages were used for recording. Background activity in this patient's EEG is about 5 Hz and 10 microvolts. Photic stimulation is unremarkable. EKG channel demonstrated irregular heart rate. IMPRESSION: Severely abnormal EEG consistent with encephalopathy, dementia or a combination. However, the finding is nonspecific and can occur in multiple other etiologies like effect of psychotropic medication, etc. Clinical correlation is recommended. By: [id number] Juan Go MD /nt
--- NOTE | ~2020-03-12 | HC ---
[facility] [place] [address] CONSULTATION Name: GILL RAMOS Room #: 202-P ADM IN M.R.#: [id number] Admission: 03/12/20 Attend Phys: Bill Chakraborty MD Discharge: Date of : 37 Report #: [id number] THIS REPORT FOR: cc: Jaime Mobley,Juan Morrison MD ~ CC: Bill Mobley DATE OF SERVICE: 03/18/2020 HISTORY OF PRESENT ILLNESS: This is an 84-year-old female patient who is unable to provide any history at all. Nobody who can provide the history is available. I talked to Dr. Perea who consulted me and she updated me on the patient's history. I reviewed the patient's records. It looks like the patient presented to Emergency Room on 03/12/2020 after a fall. She was on anticoagulation by Eliquis for atrial fibrillation. Since then, she had a pretty eventful and a protracted course during the hospitalizations including a significant respiratory difficulty. Even in the Emergency Room, it looks like her oxygen saturation has dropped into 80s. Record also indicates that she has dementia. How bad her dementia is, is not clear. REVIEW OF SYSTEMS: A 14-point review of system was carried out from the records and it looks like this patient has some seasonal allergies and some baseline dementia. She has a history of atrial fibrillation and prior history of breast cancer. She has been seen by multiple physicians including palliative care. I reviewed those notes and it looks like the patient has some expressed gomez in the past, but does not have durable power of clay miner. Reviewing the records, it indicated that she did not want the further testing done even when she came to Emergency Room and she is very reluctant to have more testing even done at that time. PAST MEDICAL HISTORY: Positive for atrial fibrillation. FAMILY HISTORY: Unavailable. SOCIAL HISTORY: Unavailable, but she does not have any durable power of clay miner. PHYSICAL EXAMINATION: Pretty limited. She does not do anything. She keeps her eyes closed and does not follow simple commands. That makes it impossible to do further neurological examination. Her blood pressure is 132/66, pulse is 108. LABORATORY DATA: White count was 10.4. She did have a CT scan of the head on . That was reviewed and that does not appear to be showing any abnormality. She did have a C-spine CT also at that time. Her CT of the chest has [address] [address] CONSULTATION Name: GILL RAMOS Room #: 202-P ADM IN ..#: [id number] Admission: 03/12/20 Attend Phys: Bill Chakraborty MD Discharge: Date of : 37 Report #: [id number] demonstrated severe compression deformity of T3 with a vertical fracture line through the body. IMPRESSION: 1. Severe encephalopathy. That appeared to be the major cause of the patient's problem. Since she does have an underlying dementia, she is going to be predisposed for severe encephalopathy even with mild hypoxia or mild metabolic problems. This patient may not return back to the baseline after those precipitating factors are taken care of. 2. She is predisposed to have a stroke because of her atrial fibrillation and not being on anticoagulation now because of her falls. If any stroke is found that will be the etiology in addition to encephalopathy. 3. She does have a compression fracture of the thoracic spine. I do not know how much problem it is causing because she is pretty unresponsive at the moment. RECOMMENDATIONS: This patient's prognosis is extremely guarded. Prognosis is even more guarded for the quality of the life below which she does not want to live and rather if the conversation in the Emergency Room and with other people is any indication. I think if MRI can be done in this patient that may help because she does have a stroke that will be another factor in favor of the fact that palliative care may be appropriate for her. I will get an EEG done to again look at the baseline activity to further prognosticate her as much as possible. Even otherwise, this patient has baseline dementia. She has a compression fracture of T3 and I am not sure how much problem that has caused and it is extremely unlikely that she will get to the quality of the life she will be acceptable. I will discuss with Dr. Perea again, but my feeling will be to consider making her palliative care. Thank you very much for this referral. By: [id number] Juan Go MD /nt
[2020-03-12 11:03] VITALS: BP 140/65
--- NOTE | 2020-03-12 12:00 | NUR ---
Report received from FEDE Nunez
--- NOTE | 2020-03-12 12:20 | NUR ---
Pt's heart rate goes from 90s to 120 bpm; EKG ordered and completed.
--- NOTE | 2020-03-12 12:23 | NUR ---
C collar that was placed by FEDE Nunez is removed by Dr Linares at this time as patient is pulling at C collar reporting that she wants it removed.
[2020-03-12 12:36] LABS: ABSOLUTE NEUTROPHILS 9.1 thou/uL (1.4-8.2); BASOPHILS 0.4 % (0.0-2.0); EOSINOPHILS 0.4 % (0.0-3.0); HEMATOCRIT 39.3 % (37.0-47.0); HEMOGLOBIN 13.3 gm/dL (12.0-15.0); LYMPHOCYTES 10.1 % (24.0-44.0); MCHC 33.9 g/dL (28.0-37.0); MCV 97.3 fL (80.0-100.0); MONOCYTES 4.3 % (1.0-8.0); PLATELET COUNT 225 thou/uL (150-400); POLYS 84.8 % (36.0-66.0); RBC 4.04 mil/uL (4.20-5.00); RDW 14.4 % (10.5-14.5); WBC 10.7 thou/uL (4.0-11.0)
--- NOTE | 2020-03-12 12:38 | NUR ---
Radiology called to come down and shoot XRAYs again as patient is agreeing.
[2020-03-12 12:40] LABS: ANION GAP 8 mmol/L (7-16); BUN 19 mg/dL (7-18); CALCIUM 8.5 mg/dL (8.5-10.1); CHLORIDE 102 mmol/L (98-107); CO2 27 mmol/L (21-32); CREATININE 0.9 mg/dL (0.6-1.0); GLUCOSE 140 mg/dL (74-106); POTASSIUM 4.1 mmol/L (3.5-5.1); SODIUM 137 mmol/L (136-145)
[2020-03-12 12:50] LABS: ALBUMIN 3.6 g/dL (3.4-5.0); SGOT 42 U/L (15-37); SGPT 39 U/L (30-65); TOTAL BILIRUBIN 0.5 mg/dL (<0.1-1.0); TOTAL PROTEIN 7.1 g/dL (6.4-8.2); TROPONIN-I <0.06 ng/mL (<0.06)
[2020-03-12] MEDS ORDERED: CARTIA XT180 M1 PO (13:50)
[2020-03-12] MEDS ORDERED: ASA81BEC PO (13:50)
--- NOTE | 2020-03-12 14:00 | NUR ---
Katelin, neighbor, here at this time. Speaks to psychiatric mental helth provider.
--- NOTE | 2020-03-12 14:02 | EKG ---
[facility] [place] [address] ELECTROCARDIOGRAM REPORT Name: GILL RAMOS Room #: REG [facility]#: [id number] Admission: 03/12/20 Attend Phys: Discharge: Date of : 39 Report #: [id number] THIS REPORT FOR: cc: Jaime Mobley James A. DO Couchonnal, Luis F. MD ~ THIS REPORT FOR: //name// [facility] ED Test Date: 2020-03-12 Test Time: 12:20:38 Pat Name: GILL RAMOS Department: Room: Gender: F Jacquard Fixer: [email or web address] : 1935 Requested By: Scotty Linares Order Number: [id number] : Jose Angel Field Measurements Intervals [place] Rate: 129 P: [place]: QRS: 74 QRSD: 77 T: -79 QT: 257 QTc: 377 Interpretive Statements Atrial fibrillation Ventricular premature complex Low voltage, extremity and precordial leads Anteroseptal infarct, old Repolarization abnormality, prob rate related Compared to ECG 02/24/2019 18:35:49 Ventricular premature complex(es) now present Low QRS voltage now present Early repolarization now present Myocardial infarct finding still present Electronically Signed On 03-12-2020 14:00:49 CDT by Jose Angel Field [email or web address] <ELECTRONICALLY SIGNED> By: Jose Angel Field MD 03/12/20 1400 1220 1220 Jose Angel Feild MD /EPI
--- NOTE | 2020-03-12 14:05 | NUR ---
Dr. Linares notified that this RN is unable to get accurate pleth for O2 sat. Reports to wrap arms in warm blankets. Bilateral arms wrapped in warm blankets.
--- NOTE | 2020-03-12 14:42 | NUR ---
Dr. Linares repairs lac. to posterior head at this time after cleaning with NS. 2 santos placed.
[2020-03-12 15:47] VITALS: BP 106/53
[2020-03-12 18:24] VITALS: BP 121/61
[2020-03-12 19:21] VITALS: BP 117/55
[2020-03-13 02:56] VITALS: BP 106/64
--- NOTE | 2020-03-13 04:49 | NUR ---
ASSUMED PT CARE AT 1900. PTIS DROWSY AND CONFUSED. NOT RESPONDING TO QUESTIONS. RIGHT TIBIA FRACTURE WITH SPLINT, HEAD LARCERATION. NO SIGN OF DISTRESS NOTED. PAIN MED ADMINISTERED TO PT. ADMISSION EDUCATION COMPLETED. PT IS IN AFIB, CONTINOUS CARDIZEM DRIP. STILL IN AFIB BUT CONTROLLED. FALL PRECAUTION IN PLACE. NO ACUTE EVENTS OVERNIGHT. CONTINUE TO MONITOR PT. NO FURTHER NEEDS AT THIS TIME.
[2020-03-13 05:35] LABS: HEMATOCRIT 34.8 % (37.0-47.0); HEMOGLOBIN 11.9 gm/dL (12.0-15.0); MCH 33.6 pg (26.0-34.0); MCHC 34.2 g/dL (28.0-37.0); MCV 98.3 fL (80.0-100.0); RBC 3.54 mil/uL (4.20-5.00); RDW 14.3 % (10.5-14.5); WBC 11.7 thou/uL (4.0-11.0)
[2020-03-13 05:48] LABS: CALCIUM 8.2 mg/dL (8.5-10.1); CREATININE 1.2 mg/dL (0.6-1.0); POTASSIUM 4.4 mmol/L (3.5-5.1)
--- NOTE | 2020-03-13 07:05 | NUR ---
PATIENT WITH A TIBIA FX, AWAITING ORTHO CONSULT. WILL PLACE ON HOLD UNTIL AFTER CONSULT AND NEW ORDERS.
[2020-03-13 07:30] VITALS: BP 113/77
--- NOTE | 2020-03-13 10:50 | NUR ---
cm tried x 2 to call pt in room. dick spoke with bedside nurse who reported pt is very confused and prbably not picking up the phone. will try pt listed contacted.
[2020-03-13 11:30] VITALS: BP 104/73
[2020-03-13 16:30] VITALS: BP 100/70
[2020-03-13 18:39] LABS: BE(vivo) -0.5 mmol/L (-2 to +3); HCO3 22.3 mmol/L (22.0-26.0); pH 7.475 (7.360-7.450); sO2 88.6 % (92.0-98.0)
[2020-03-13 18:41] LABS: PO2 50.4 mmHg (80.0-100.0)
--- NOTE | 2020-03-13 19:30 | NUR ---
ASSUMED CARE PT SHIFT CHANGE. ASSESSMENTS CHARTED--PT REFUSED NOON ASSESSMEMT. MEDS GIVEN PER JAN. PT DID NOT C/O PAIN. VSS EXCEPT FOR LOW O2. AT APPROX 1630 PT O2 SATS DROPPED TO 70S, PT YELLING AND EXHIBITING COMBATIVE BEHAVIOR. DR KLEIN ON UNIT AT THE TIME AND ORDERED WRIST RESTRAINTS, PT WAS ATTEMPTING TO SWING AT NURSES, WELL PULL OFF HER O2 CANNULA. DR LORD NOTIFIED--ORDERS RECEIVED. CT CHEST ORDERED TO R/O PE--REFER TO RESULTS. PT HR ELEVATED AND INTO AFIB RVR. CARDIOLOGY NOTIFIED--ORDERS RECEIVED. ABG ORDERED AND PO2 CRITICAL LOW, PHYSICIAN NOTIFIED. NO NEW ORDERS. PT SEEN BY DR KNIGHT AND ORDERS PUT IN. PT CONTINUES TO BE VERY CONFUSED, AGITATED, ANXIOUS AND IRRITABLE. PT SEEN BY ORTHO THIS AM--PLASTER CAST REMOVED AND NEW BRACE APPLIED PER ORDERS. PT CURRENTLY RESTING IN BED, RESTRAINTS REMAIN INTACT. PT INCONTINENT-- SKIN AND BED CHECKED FREQUENTLY. PT REFUSED MOST OF MEALS TODAY, DID NOT WANT TO EAT OR DRINK SUPPLEMENTS. REPORT GIVEN TO [facility] NURSE.
[2020-03-13 20:32] VITALS: BP 132/72
--- NOTE | 2020-03-13 23:06 | HC ---
[facility] [place] [address] CONSULTATION Name: GILL RAMOS Room #: 201-P ADM IN M.R.#: [id number] Admission: 03/12/20 Attend Phys: Bill Chakraborty MD Discharge: Date of : 37 Report #: [id number] THIS REPORT FOR: cc: Jaime Mobley James A. DO Kerstein, Andrew H. DO ~ CC: Bill Mobley DATE OF SERVICE: 03/12/2020 EMERGENCY ROOM CONSULTATION EMERGENCY ROOM ATTENDING: Scotty Linares MD CONSULTING PSYCHIATRIST: Bill Lozano DO REASON FOR CONSULTATION: Capacity to make decisions given the patient's statements, she does not want to be admitted to the hospital and does not want Cardizem for stabilization of atrial fibrillation with rapid ventricular response. SOURCES OF INFORMATION: Interview of patient. Collateral from her longtime friend, Emergency Room records CHIEF COMPLAINT: Unspecified. HISTORY OF PRESENT ILLNESS: An 84-year-old female brought to the Emergency Room here at [facility]. The patient was brought by ground EMS. She presented to the ER after a fall. She is on Eliquis for atrial fibrillation. She has 2 cm laceration to the back of her head, complains of right leg pain. She stated the pain starts above her knee and radiates down rest of her legs. She states that she was going up some stairs when she fell and hit the back of her head and believes that she also twisted her right leg. States that she remembers falling. She does not remember crawling to the phone. She is unsure if she had a loss of consciousness. Notes that she has had pain in her right leg in the past, but "not like this." To the ER physician she denied chest pain, neck pain, nausea, vomiting, focal weakness or visual changes. On interview in the ER room 10, patient was somewhat difficult to arouse, had to rub her shoulder and sternum. She was able to state who she was, it was Tuesday, it was February. She stated the year was 2009 and the date was . I questioned her about her injuries, namely her fracture and her heart rate. She stated to me that she wanted to . When I asked if she would be admitted to the hospital, she said she wanted to go home. The patient kept drifting off to sleep during the questioning, nurse told me she got 2 mg of morphine IV, approximately an hour and a half [place] [address] CONSULTATION Name: GILL RAMOS Room #: 201-P ADM IN M.R.#: [id number] Admission: 03/12/20 Attend Phys: Bill Chakraborty MD Discharge: Date of : 37 Report #: [id number] PAST HISTORY: From the ER, double mastectomy, breast cancer. SURGICAL HISTORY: Hernia repair, hysterectomy, hemorrhoidectomy, tonsillectomy. SOCIAL HISTORY: Smoker, states she was just smoking half pack per day for 20 years. MEDICAL HISTORY: Atrial fibrillation, back pain. HOME MEDICATIONS: Include diltiazem 180 mg p.o. daily, aspirin 81 mg p.o. daily, apixaban 2.5 mg twice per day. ALLERGIES: HYDROCODONE, OXYCODONE, PROPOXYPHENE, AMOXICILLIN, BELLADONNA, PENICILLINS, PHENOBARBITAL, SULFA. REVIEW OF SYSTEMS: From the ER, CONSTITUTIONAL: Negative for chills and fever. HEENT: Negative for ear pain and hearing loss. RESPIRATORY: Negative for cough. CARDIOVASCULAR: Negative for chest pain. GASTROINTESTINAL: Negative for abdominal pain, nausea and vomiting. GENITOURINARY: Negative for dysuria. MUSCULOSKELETAL: Negative for back pain and neck pain. SKIN: Negative for rash. NEUROLOGICAL: Negative for headaches. PSYCHIATRIC: Positive for confusion VITAL SIGNS: In the ER were, O2 sat 100, BP 140/65, temperature 36.4, pulse 62, weight 45.36 kilos. Her BMI is low at 18.3. PHYSICAL EXAMINATION: Deferred to the Emergency Medicine physician. She was supine on a gurney in the ER when I saw her. Her EKG showed AFib with RVR, rate 129, normal axis. LABORATORY DATA: Sodium 137, potassium 4.1, chloride 102, bicarbonate 27, anion gap 8, BUN 19, creatinine 0.9, estimated GFR 60, glucose 140, calcium 8.5, total bilirubin 0.5, AST 42, ALT 39, alkaline phosphatase 78. Troponin less than 0.06. Total protein 7.1, albumin 3.6. White count 10.7, H and H 13.3 and 39.3, platelet count 225. CT of the head was read as negative. CT scan of the C-spine without contrast showed disk degeneration, no acute cervical spine fracture and no T3 anterior compression fracture. X-ray of the femur showed proximal tibial mildly comminuted fracture with impaction and intra-articular extension, so that is to the right. [facility] [address] [place] [address] CONSULTATION Name: GILL RAMOS Room #: 201-P ADM IN M.R.#: [id number] Admission: 03/12/20 Attend Phys: Bill Chakraborty MD Discharge: Date of : 37 Report #: [id number] MENTAL STATUS EXAMINATION: This is a well-developed, elderly, appearing disheveled female appearing at least stated age. Attention limited. Concentration limited. Speech slow, soft. Thought process linear and limited. Thought content, fair poverty of thought. Psychomotor retardation. No psychomotor agitation. Denied SI or HI. Denied auditory, visual, or tactile hallucinations. Memory not formally tested, but suspect to be impaired. Insight limited. Judgment impaired. Fund of knowledge, no greater than average. FORMULATION: An 84-year-old female brought by EMS for a fall. The patient had a complication of a run of AFib with RVR, which she has historically. DIAGNOSES: At this time, delirium secondary to general medical condition, namely fall, atrial fibrillation with RVR, medication effect, could not exclude underlying major neurocognitive disorder. The patient has clearly gait difficulty and a right tibial fracture, atrial fibrillation. RECOMMENDATIONS: At this time, the patient does not have capacity to make healthcare or general financial decisions. She has a DPOA. It should be enacted. Lady presented with a long-time friend, states she was the DPOA, but did not have the paperwork. At this time, I recommend the medically treating physicians utilize parens patriae doctrine to medically stabilize the patient including the need for surgery, inpatient medical hospitalization. Given her delirium I cannot make a diagnosis of a mood disorder at this time. Time spent on interview, review of records, coordination of care of this patient is in the 40-minute range. <ELECTRONICALLY SIGNED> By: Bill Lozano, 03/13/20 2306 1415 1530 Bill Lozano, /nt
[2020-03-14] VITALS (11 sets, daily range): BP systolic 118–134; BP diastolic 55–75
--- NOTE | 2020-03-14 03:14 | NUR ---
ASSUMED PT CARE AT 1900. PT IS CONFUSED. PT IS IN RESTRAINTS. PT IS AGITATED AND COMBATIVE. OXYGEN SATURATION IS LOW, HIGH FLOW OXYGEN NOTED. LOW EXTREMITY IMMOBILIZER IN PLACE. PAIN MED ADMINISTERED. ASSESSMENT COMEPLETED AND DOCUMENTED. O2 SATS STABLE ON LIGHT FLOW OXYGEN. CONTINUE TO MONITOR, NO FURTHER NEEDS AT THIS TIME.
[2020-03-14 04:37] LABS: HEMATOCRIT 34.5 % (37.0-47.0); HEMOGLOBIN 11.9 gm/dL (12.0-15.0); MCH 33.5 pg (26.0-34.0); MCHC 34.4 g/dL (28.0-37.0); MCV 97.4 fL (80.0-100.0); RBC 3.54 mil/uL (4.20-5.00); RDW 14.4 % (10.5-14.5)
[2020-03-14 05:09] LABS: ALBUMIN 3.1 g/dL (3.4-5.0); CALCIUM 8.6 mg/dL (8.5-10.1); CREATININE 0.8 mg/dL (0.6-1.0); POTASSIUM 4.1 mmol/L (3.5-5.1); TOTAL BILIRUBIN 0.8 mg/dL (<0.1-1.0); TOTAL PROTEIN 6.6 g/dL (6.4-8.2)
[2020-03-14 06:34] LABS: BE(vivo) -1.1 mmol/L (-2 to +3); HCO3 22.2 mmol/L (22.0-26.0); PCO2 32.6 mmHg (35.0-45.0); PO2 65.1 mmHg (80.0-100.0); pH 7.451 (7.360-7.450); sO2 93.9 % (92.0-98.0)
--- NOTE | 2020-03-14 09:52 | NUR ---
cm called and left message with sheeba friend la nena, no answer , left message requested call back, need to see if she found copy of pt healthcare dir. pt on high flow O2 that she was not on yesterday. will cont following as needed for dc needs, passed on information to that pt friend stated yesterday she been going out in community and not taking precaution during this pandemic pritchard.
--- NOTE | 2020-03-14 10:11 | 2DMMODE ---
[facility] [place] [address] 2 D/M-MODE ECHOCARDIOGRAM Name: GILL RAMOS Room #: 201-P ADM IN M.R.#: [id number] Admission: 03/12/20 Attend Phys: Bill Chakraborty MD Discharge: Date of : 37 Report #: [id number] THIS REPORT FOR: cc: Jaime Mobley James A. DO Lundgren, Craig H. MD [facility] ~ APPROVED REPORT Study performed: 03/14/2020 08:33:39 EXAM: Comprehensive 2D, Doppler, and color-flow Echocardiogram Patient Location: Bedside Room #: 201 Status: routine BSA: 1.42 HR: 117 bpm BP: 132/70 mmHg Rhythm: Atrial Fibrillation Other Information Study Quality: Poor/not all measurements taken Technically limited study due to highly combative and uncooperative patient. Breast implants. Indications Atrial Fibrillation Hx: Afib, COPD, HTN. Aortic Valve AoV Peak Agapito.: 1.50 m/s AO Peak Gr.: 8.94 mmHg Tricuspid Valve TR Peak Agapito.: 3.33 m/s RAP Estimate: 10.00 mmHg TR Peak Gr.: 44.46 mmHg PA Pressure: 54.00 mmHg Left Ventricle The left ventricle is normal size. Regional wall motion is not well visualized but grossly normal. There is normal left ventricular wall thickness. Left ventricular systolic function is normal. LVEF is 65%. This study is not technically sufficient to allow evaluation of the LV diastolic function. [facility] [address] [place] [address] 2 D/M-MODE ECHOCARDIOGRAM Name: GILL RAMOS Room #: 201-P ADM IN M.R.#: [id number] Admission: 03/12/20 Attend Phys: Bill Chakraborty MD Discharge: Date of : 37 Report #: [id number] Right Ventricle Right ventricle is not well visualized. Function appears normal. The right ventricular systolic function is normal. Atria Left atrium is dilated. Right atrium is dilated. Aortic Valve Aortic valve is mildly calcified. Mild aortic regurgitation. There is no aortic valvular stenosis. Mitral Valve The mitral valve is normal in structure. Moderate mitral regurgitation. No evidence of mitral valve stenosis. Tricuspid Valve The tricuspid valve is normal in structure. Severe tricuspid regurgitation. Estimated PAP is 55mmHg. Pulmonic Valve The pulmonary valve is normal in structure. Great Vessels IVC is normal in size and collapses <50% with inspiration. Pericardium There is no pericardial effusion. <Conclusion> Technically difficult study Left ventricular systolic function is normal. LVEF is 65%. Both atria are dilated. Aortic valve is mildly calcified. Mild aortic regurgitation, no stenosis. The mitral valve is normal in structure. Mild-moderate mitral regurgitation. The tricuspid valve is normal in structure. Severe tricuspid regurgitation. Estimated pulmonary artery pressure of 55mmHg. There is no pericardial effusion. <ELECTRONICALLY SIGNED> By: Jeffrey Cook MD, FACC 03/14/20 1009 1009 1009 Jeffrey Cook MD, FACC /INF
--- NOTE | 2020-03-14 11:24 | NUR ---
PT CARE ASSUMED AT SHIFT CHANGE. PT ASSESSMENT CHARTED. PT MEDICATION CHARTED. PT RESTRAINED, Q2 CHECKS. COMBATIVE BEHAVIOR PT PULLING AT ITEMS IN REACH. IV THERAPY CONTACTED FOR PULLED IV, DIFFICULT STICK. PT TO BE R/O COVID PER DR. JACOME. PT TRANSFERRED TO ICU 239. PT HIGH FLOW O2 AT 14 LPM. CONT. POX.
--- NOTE | 2020-03-14 13:17 | NUR ---
ASSUMED CARE OF PT AT 1120. PT AGITATED AND CONFUSED TOWARDS STAFF. BILATERAL SOFT WRIST RESTRAINTS IN PLACE. RIGHT UPPER MIDLINE PLACED BY IV ACCESS TEAM. PT IN A-FIB/RVR CARDIOLOGY AWARE. PT ON 14 LITERS OF 02 VIA NASAL CANNULA HOWEVER, DIFFICULT TO GET AN ACCURATE SATURATION READING ON MONITOR DUE TO PT'S CONSTANT MOVEMENT.HAD TO GIVE 0.5 MG DOSE OF LORAZOPAM EARLIER THAN SCHEDULED DUE TO AGITATION AND NEED FOR THE PT TO STAY STILL POSSIBLE WHILE INSERTION OF MIDLINE. NO BM TODAY, LAST BM UNKNOWN.
--- NOTE | 2020-03-14 13:53 | NUR ---
Call back rec'd from pt's friend and neighbor Katelin Avila. She is dropping a copy of the pt's living trust and health care directive off to security. Security notified to take it RN in ICU to be placed in the medical record. She is going to go over the pt's home later today and look again as she thought there was a DPOA for HC document as well with her listed as the agent. She will let us know if she is able to locate it and also bring it up to the hospital. ICU staff and the attending updated as well.
--- NOTE | 2020-03-14 14:07 | NUR ---
VASCULAR ACCESS CONSULTED FOR PICC PLACEMENT. AFTER REVIEW OF MEDS,HISTORY ,LABS. PT HAS HX DOUBLE MASTECTOMY YEARS AGO, SHE ONLY HAS IV PUSH MEDS ORDERED. SO MIDLINE IS MORE APPROPRIATE. PT IS COMBATIVE SO ML IS SAFEST.ALSO SHE HAS PULLED OUT NUMEROUS PIV'S. MARIAH BRACHIAL WAS WIDELY PATENT WITH USG. 4FR POWER MIDLINE TRIMMED TO 13CM INSERTED TO 0CM WITH BRISK BR. PT TOLERATED WELL. ML RELEASED FOR IMMEDIATE USE PER PROTOCOL TO ROGER MISTRY
--- NOTE | 2020-03-14 17:13 | NUR ---
PT TO BE PLACED ON HOLD FROM P.T. DUE TO CHANGE IN PULMONARY STATUS AND SUBSEQUENT TX TO ICU WHILE CO-VID INFECTION BEING RULED OUT. REQUEST NEW ORDERS WHEN APPROPRIATE.
[2020-03-15] VITALS (19 sets, daily range): BP systolic 109–133; BP diastolic 48–82
[2020-03-15 04:58] LABS: BE(vivo) -0.6 mmol/L (-2 to +3); HCO3 21.3 mmol/L (22.0-26.0); PO2 59.7 mmHg (80.0-100.0); pH 7.515 (7.360-7.450); sO2 93.6 % (92.0-98.0)
--- NOTE | 2020-03-15 05:40 | NUR ---
SLEPT MOST OF SHIFT. WHEN PATIENT BECOMES AGITATED AND IMPULSIVE ATIVAN AND MOROPHING GIVEN WITH NOTED RELIEF. BRACE TO RIGHT KNEE REMAINS IN PLACE. PATIENT TOLERATING O2 AT 6L/HFNC WHEN NOT AGITATED. WORKING ON GOALS AND PLAN OF CARE FOR NOC. RADHA GTT STARTED FOR AFIB HR >120'S. TELEMETRY 90'S AT PRESENT TIME. PROGRESSING SLOWLY TOWARDS DISCHARGE GOALS. CONTINUE TO ASSES CLOSELY.
[2020-03-15 06:28] LABS: ABSOLUTE NEUTROPHILS 8.5 thou/uL (1.4-8.2); BASOPHILS 0.2 % (0.0-2.0); EOSINOPHILS 0.1 % (0.0-3.0); HEMATOCRIT 30.4 % (37.0-47.0); HEMOGLOBIN 10.5 gm/dL (12.0-15.0); LYMPHOCYTES 10.2 % (24.0-44.0); MCH 33.7 pg (26.0-34.0); MCHC 34.7 g/dL (28.0-37.0); MCV 97.3 fL (80.0-100.0); MONOCYTES 6.4 % (1.0-8.0); PLATELET COUNT 157 thou/uL (150-400); POLYS 83.1 % (36.0-66.0); RBC 3.12 mil/uL (4.20-5.00); WBC 10.2 thou/uL (4.0-11.0)
[2020-03-15 06:46] LABS: ALBUMIN 2.8 g/dL (3.4-5.0); CALCIUM 7.9 mg/dL (8.5-10.1); CREATININE 0.7 mg/dL (0.6-1.0); POTASSIUM 3.6 mmol/L (3.5-5.1); TOTAL PROTEIN 5.7 g/dL (6.4-8.2)
--- NOTE | 2020-03-15 17:11 | NUR ---
PT ASSESSED, VSS, VERY DROWSY, BUT OPENS EYES BRIEFLY TO VERBAL COMMANDS. PT MORE ALERT AROUND 1300, STATED "GET ALL THESE THINGS OFF ME!" CALLED NURSE CHOICE WORDS. PT LATER REPLIED TO THE PAIN QUESTION AND SAID SHE WAS HAVING PAIN, MED GIVEN. WILL MONITOR. UPDATE GIVEN TO DPOA, ANI VASQUEZ.
[2020-03-16] VITALS (10 sets, daily range): BP systolic 110–123; BP diastolic 49–71
--- NOTE | 2020-03-16 06:42 | NUR ---
ASSUMED CARE OF PATIENT AT 1900. ASSESSMENTS COMPLETED. PATIENT CONFUSED, ALERT TO SELF ONLY. AFIB ON MONITOR WITH CARDIZEM GTT AND HEART RATE 88-120, PRIMARILY IN LOW 100'S. PATIENT ON NASAL CANULA WITHOUT ANY SIGNS OF DISTRESS IN BREATHING AND O2 SAT 95%+. RUBIO PATENT. UNKNOWN LAST BOWEL MOVEMENT. PATIENT TAKING MORPHINE FOR PAIN, WITH IMPROVEMENT DEMONSTRATED BY PATIENT SLEEPING. PATIENT TO CONTINUE WITH POC.
[2020-03-16 12:54] LABS: CALCIUM 8.2 mg/dL (8.5-10.1); CREATININE 0.7 mg/dL (0.6-1.0); POTASSIUM 3.1 mmol/L (3.5-5.1)
--- NOTE | 2020-03-16 17:57 | NUR ---
PT KNOWS HER NAME , BUT SHE IS CONFUSED AND SHE STILL TRY TO MOVE HER IV LINE AND O2 TUBE, PT IS ON SOFT RESTRAINT AT BOTH WRISTS, PT IS CONTINUING O2 6L/MIN /NC, AND DILTIAZEM IV TITRATE RATE AT 10MG/10ML/HR-15MG/15ML/HR TO KEEP HR 80-100, PT'S VS ARE STABLE , RN HAS CALLED DR FOR LOW BS (63) AND LOW POTASSIUM 3.1 AND LOW MAGESIUM 1.5 , NEW ORDER RECEIVED, RN WILL REPORT TO NEXT SHIFT TO KEEP EYE ON. RN HAS REPORTED DR ABOUT PT REFUSED PO MEDICATIONS AND REFUSE D DRINKING AND EATING .
[2020-03-16 23:01] LABS: MAGNESIUM 2.2 mg/dL (1.8-2.4); POTASSIUM 3.5 mmol/L (3.5-5.1)
[2020-03-17] VITALS (16 sets, daily range): BP systolic 93–132; BP diastolic 48–71
--- NOTE | 2020-03-17 06:44 | NUR ---
ASSESSMENTS CHARTED, MEDS CHARTED GIVEN. PATIENT RESTING IN BED DURING SHIFT. CONFUSED AND AGITATED AT TIMES RIGHT LOWER EXTREMITY IN IMMOBILIZER. ALKA IN BACK OF HEAD. ON CARDIZEM DRIP FOR AFIB. IN RESTRAINTS. FALL PRECAUTIONS IN PLACE.
[2020-03-17 09:56] LABS: CALCIUM 8.4 mg/dL (8.5-10.1); CREATININE 0.7 mg/dL (0.6-1.0); MAGNESIUM 2.2 mg/dL (1.8-2.4); POTASSIUM 3.5 mmol/L (3.5-5.1)
--- NOTE | 2020-03-17 16:17 | NUR ---
PT STILL IS CONFUSED, PT IS CONTINUING O2 6-7L/MIN/NC TO KEEP O2SAT AT 93-97%, PT IS CONTINUING IV DRIP DILTIAZEM TITRATED AT 10-15MG/HR TO KEEP HR AT 80-100, PT 'S PAIN AND AGITATION CAN CONTROL BY MEDICATIONS AT MOST OT TIME, PT HAS BILATERAL WRIST SOFT RESTRAINT FOR SAFTY, PT'S VS ARE STABLE AT THIS TIME.PT IS GOING TO TRANSFER TO CCU UNIT WHEN UNIT BED IS AVILABLE.
--- NOTE | 2020-03-17 16:36 | NUR ---
SW reviewed chart and spoke with attending physician. Pt is in restraints. Palliative care consult ordered. Discussed with palliative care physician. Pt has a living trust document which appoints her friend, Katelin, as her trustee. No healthcare directive on file. SW contacted Medical Records, who faxed the living trust document. [facility] is following to assist as needed with discharge planning.
--- NOTE | 2020-03-18 00:41 | NUR ---
RECEICED PT FROM ICU 1899 (03/17). PT CONFUSED. ORIENTEDX1. SOFT BP. CARDIZEM GTT 15ML/HR. PT IN RESTRAINTS. HAND OFF REPORTED GIVEN TO RN,. NOTIFIED ON COMING RN OF SOFT BP AND CARDIZEM GTT. RAILWAY SIGNAL OPERATOR WAS MOVED TO 3W. RAILWAY SIGNAL OPERATOR LEFT PT IN STABLE CONDITION.
[2020-03-18 03:49] VITALS: BP 128/54
--- NOTE | 2020-03-18 06:16 | NUR ---
ASSUMED CARE OF PT APPROX 2130HRS. PT IS CONFUSED AGITATED AT TIMES. PT ON SOFT RESTRAINTS. CONTINUES ON CARDIZEM GTT. FOLET CATHETER IN PLACE. NEEDS ASSIST WITH FEEDINND AND ADLS. O2 6L PER NC. NO S/S PAIN NOTED OR REPORTED THIS SHIFT
[2020-03-18 07:25] VITALS: BP 132/66
[2020-03-18 09:31] LABS: HEMATOCRIT 30.4 % (37.0-47.0); HEMOGLOBIN 10.6 gm/dL (12.0-15.0); MCH 33.4 pg (26.0-34.0); MCHC 34.9 g/dL (28.0-37.0); MCV 95.5 fL (80.0-100.0); RBC 3.18 mil/uL (4.20-5.00); RDW 13.5 % (10.5-14.5); WBC 10.4 thou/uL (4.0-11.0)
[2020-03-18 09:42] LABS: CALCIUM 8.7 mg/dL (8.5-10.1); CREATININE 0.7 mg/dL (0.6-1.0); POTASSIUM 3.8 mmol/L (3.5-5.1)
[2020-03-18 11:25] VITALS: BP 142/74
--- NOTE | 2020-03-18 16:53 | NUR ---
PT CARE ASSUMED APPROX 0700. ASSESSMENTS CHARTED. PT DOES NOT APPEAR TO BE IN ANY PAIN OR DISTRESS. TOLERATING POC. AGITATION NOTED AND PT MEDICATED THIS AFTERNOON. LOC WAS DIFFERENT THIS AM. DR JACOME NOTIFIED AND ORDERS GIVEN. TUBE FEEDING HELD AFTER PLACEMENT CONFIRMATION DUE TO NO PUMP BEING AVAILABLE. DR JACOME AWARE AND HOUSE SUP TO PROVIDE PUMP TIMELY THROUGH [employer] [facility] IF POSSIBLE. WILL PASS ON TO RECEIVING NURSE TO F/U. VSS. TURNING Q2 HRS AND PRN. WILL CONTINUE TO MONITOR.
[2020-03-18 16:55] VITALS: BP 138/91
[2020-03-18 20:10] VITALS: BP 140/66
[2020-03-19] VITALS (8 sets, daily range): BP systolic 106–133; BP diastolic 53–72
--- NOTE | 2020-03-19 03:25 | NUR ---
ASSUMED PT CARE AT 1900, PT IS DROWSY, AND CANT MAKE NEEDS KNOWN, NO DISTRESS OR PAIN NOTED, VSS, AFIB ON CARDIZEM DRIP TITRATED TO 15 AT 0000, AGITATION NOTED, MEDICATION GIVEN FOR AGITATION, TUBE FEEDING INITIATED AT 2330 AT 20ML/HR, MEDICATION GIVEN ORDERED, QTURNS MAINTAINED, RESTAINS IN PLACE, RESTING WITH NO DISTRESS NOTED AT THIS TIME, WILL CONTINUE TO MONITOR
--- NOTE | 2020-03-19 14:07 | NUR ---
Dr Hayward evaled patient plan for hospitalist and Dr Hayward to discuss. Casemgt to update Katelin once plan is arranged. Sp with RN patient DNR.
--- NOTE | 2020-03-19 18:36 | NUR ---
ASSUMED CARE PT SHIFT CHANGE. ASSESSMENTS CHARTED.MEDS GIVEN PER JAN. PT NOT ALERT, DOES NOT RESPOND TO VERBAL COMMANDS. RESPONDS TO PAIN. FELIX REMAINS IN PLACE WITH TUBE FEEDS RUNNING. O2 AT 5L HIGH FLOW. PROTECTIVE BOOTS ON FEET. PT NOT PROGRESSING TOWARDS GOALS. HR ELEVATED AT 140S-150S- CARDIOLOGY NOTIFIED. ORDERS RECEIVED. HR STABILIZED. RESTRAINTS REMAIN IN PLACE. ORDERS RECEIVED FOR RENEWAL. PT CURRENTLY RESTING IN BED. FREQUENT CHECKS ON PT. WILL PASS ON REPORT TO [facility] NURSE.
[2020-03-20 03:26] VITALS: BP 104/53
--- NOTE | 2020-03-20 06:53 | NUR ---
NO CHANGES IN STATUS THIS SHIFT. WORKING ON GOALS AND PLAN OF CARE FOR NOC. NOT PROGRESSING TOWARDS DISCHARGE GOALS. TURNS FOR COMFORT AND AND SKIN CARE. BARRIER CREAM USED ON BUTTOCKS PRN. GARBLED SPEECH AT TIMES, DOES NOT FOLLOW DEMANDS. UNRESPONSIVE AT TIMES. CONTINUE TO ASSES CLOSELY.
[2020-03-20 09:00] VITALS: BP 139/70
--- NOTE | 2020-03-20 10:00 | NUR ---
PER RN, Pt CONTINUES TO NOT RESPOND TO ANY COMMANDS. WITH REPEATED ATTEMPTS OVER 3 DAYS, Pt IS ON HOLD UNTIL/IF Pt CAN PARTICIPATE IN O.T. AND NEW ORDERS ARE RECEIVED. RN INFORMED.
--- NOTE | 2020-03-20 12:17 | NUR ---
FAXED REFERRAL TO HOSPICE SPOKE WITH KAVYA IN INTAKE SHE RECEIVED REFERRAL AND WILL EVAL FOR HOSPICE HOUSE WTG LIST. DP TO FOLLOW.
--- NOTE | 2020-03-20 13:43 | HC ---
[facility] [place] [address] [address] [place] [address] CONSULTATION Name: GILL RAMOS Room #: 202-P ADM IN M.R.#: [id number] Admission: 03/12/20 Attend Phys: Bill Chakraborty MD Discharge: Date of : 39 Report #: [id number] THIS REPORT FOR: cc: Jaime Mobley James A. DO Clymer, David J. MD ~ CC: Bill Mobley CHIEF COMPLAINT: Right proximal tibia fracture. HISTORY OF PRESENT ILLNESS: This frail 84-year-old female lives in her own home with some limited assistance. Apparently, she has a history of psychiatric disease and has difficulty making her own decisions and I believe has a durable power of emergency services dispatcher, but I am uncertain if that individual is at this point available. The patient states that she functions in her own home, but uses a walker or cane for ambulation. She fell at home injuring the right lower extremity. She was brought to [facility] where x-rays confirm a comminuted mildly impacted fracture of the right proximal tibia. This is a transverse fracture involving both the medial and lateral tibial plateau with some limited extension up into the joint, but without significant disruption of the joint surface alignment. She apparently has no other significant orthopedic injuries. I understand that she does have other significant medical problems and was noted to have atrial fibrillation, which required further attention and medical management. She is also obviously confused and frail and seems to have only a fair understanding of the situation. Initially, she stated that she did not want any treatment and simply wished to be allowed to . I think at this point, she is more cooperative and seems to understand the situation a bit better. I am uncertain if her durable power of emergency services dispatcher is available. She states she does not have any family who may assist her. At the time of my evaluation, she is resting comfortably in bed and is conversant, but obviously somewhat confused. The right lower extremity is well supported in a well-padded plaster long leg splint. The toes are warm and well perfused with good movement and good sensation. She seems to have satisfactory movement of the right hip without much joint pain. The area of the knee is uncomfortable, but is well protected in the current splint. The opposite left lower extremity reveals satisfactory movement at the hip, knee and ankle without localized discomfort. She seems also to have good movement of both upper extremities at the shoulder, elbow, wrist and hand without localized injury or significant discomfort. Review of her x-rays reveal right femur films which show no obvious fractures at the hip or distal femur with moderate degenerative arthritis of both joints. X-rays of the right knee and tibia reveal a transverse fracture across the upper [facility] [address] [place] [address] CONSULTATION Name: RICHARDGILL M Room #: 202-P ADM IN M.R.#: [id number] Admission: 03/12/20 Attend Phys: Bill Chakraborty MD Discharge: Date of : 39 Report #: [id number] tibial plateau extending across both the medial and lateral aspect with moderate transverse impaction in the metaphyseal region. The joint surface is still adequately aligned and seems to be well positioned relative to the distal femoral condyles. IMPRESSION: I have discussed this at some length with the patient, although with some difficulty given her confusion. I have explained that this fracture might be managed nonsurgically, although the recovery will be slow and she will probably have some problems with limited knee range of motion. Surgical fixation might be considered, but the location and character of the fracture would make this difficult and at this point, I doubt that we would achieve much improvement in overall function with surgical treatment. I think the risks given her age and other medical problems may be greater than the potential benefits. Given this, I think nonsurgical management with chronic protection using a removable and adjustable splint would be most appropriate. I have asked the patient about this approach and she seems to clearly favor conservative nonsurgical treatment and she wants to avoid any surgery if at all possible. Clearly, she will require extensive assistance and will not be able to return to her own home given these new problems. We will go ahead with a knee immobilizer brace, which can be adjusted for comfort and to inspect the skin. We will follow along with this conservative approach, but I think she could proceed with plans for transfer to an extended care facility for ongoing assistance whenever she seems medically stable. <ELECTRONICALLY SIGNED> By: Henrry Soto MD 03/20/20 [id number] Henrry Soto MD /nt
--- NOTE | 2020-03-20 15:28 | NUR ---
Dr. Hayward and the attending are recommending comfort measures. Both have reviewed the pt's medical directive and touched base with the pt's friend Katelin. Pt is now on comfort measures and DNR. Hospice referral initiated with [facility]. They can accept, however the pt was placed on their waiting list as they do not have a bed available today. All parties updated including Katelin. Support provided. [facility] to fax admission paperwork for physician signature and outside the hospital dnr form has been placed on the front of the chart for signature as well. Will f/u with [facility] in the am. Pt is not responsive at this time. Will follow.
[2020-03-20 16:00] VITALS: BP 121/68
--- NOTE | 2020-03-20 20:02 | NUR ---
ASSUMED CARE OF PATIENT AT 0700. PATIENT IS VERBAL, HOWEVER WORDS ARE INCOMPREHENSABLE. PER DR. CERVANTES, PATIENT PLACED ON COMFORT CARE AT 1030. DOBHOFF AND TELE REMOVED AT 1035. BILATERAL WRIST RESTRAINTS REMOVED AT 1150. PATIENT GIVEN ONE DOSE OF LORAZEPAM AND MORPHINE 2 MG FOR AIR HUNGER. PATIENT SLEEPING REMAINDER OF DAY. PATIENT REFUSES ANY MOUTH MOISTURE. SPOKE WITH HOSPICE HOUSE AND THEN EXPECT PATIENT TO HAVE AN OPEN BED AVAILABLE TOMORROW. PATIENT TO CONTINUE WITH POC.
[2020-03-20 20:18] VITALS: BP 126/70
[2020-03-21 03:38] VITALS: BP 118/71
--- NOTE | 2020-03-21 04:10 | NUR ---
03/20/201999 ASSUMED CARE OF PT AFTER REPORT FROM DAY SHIFT, PT IS ON COMFORT CARE MEASURES. 2199 ASSESSMENT COMPLETED, PT AWAKENS WITH TOUCH, NO VERBAL RESPONSE, SKIN P/W/D AND RADIAL PULSES PALPABLE, RUBIO CATH IN PLACE DRAINING. WILL CONTINUE COMFORT CARE, TURNS, AND HOURLY ROUNDING. PT HAS NOT NEEDED RESTRAINTS.
[2020-03-21 07:30] VITALS: BP 95/54
[2020-03-21 09:40] VITALS: BP 120/75
--- NOTE | 2020-03-21 10:17 | NUR ---
Call rec'd from [facility] to confirm they have a bed for the pt this morning. [facility] arranged for 11am transport. The attending has signed her DNR and admission paperwork from [facility]. All originals are being sent with the pt. Pt's friend Katelin aware and agreeable. [facility] this afternoon. Nursing has called report.
--- NOTE | 2020-03-21 10:22 | NUR ---
Assumed pt care this am, pt is on comfort care. Lethargic with a dan in place draining yellow urince with sediments noted, midline patent on the right upper arm. Pt would at times respond when name is called out. ON 5 liters of O2 via nasal canula saturation is in the mid 80's. Q2 turns done, comfort care ensured, frequent visits are being done. POC followed , no signs or verbalizations of distress have been noted. Report called to hospice house, awaiting picker and packer at 11 am today.
--- NOTE | 2020-03-21 11:22 | NUR ---
FAXED DC ORDES/SUMMARY TO HOSPICE HOUSE SPOKE WITH GLADYS IN ADM SHE RECEIVED ALL THE PAPERWORK NEEDED FOR ADM.
== END 2020-03-21 11:25 | disposition hospice, inpatient (51) | DRG 562 ==
LOC: ER 11:02 → EROBS 14:11 → 2N 14:11 → ICU 03-14 11:00 → 2N 03-17 20:09
PROVIDERS: Emergency Medicine; Hospitalist; Nurse Practitioner; Nurse Practitioner Family; Pediatrics; ADMIT Hospitalist
PROC: 0HQ0XZZ Repair Scalp Skin, External Approach (ICD-10-PCS; principal; 2020-03-12)
DX: S82.251A Displaced comminuted fracture of shaft of right tibia, initial encounter for closed fracture (principal); I50.33 Acute on chronic diastolic (congestive) heart failure; J96.01 Acute respiratory failure with hypoxia; G93.41 Metabolic encephalopathy; E43 Unspecified severe protein-calorie malnutrition; S22.039A Unspecified fracture of third thoracic vertebra, initial encounter for closed fracture; N17.9 Acute kidney failure, unspecified; I48.21 Permanent atrial fibrillation; J44.1 Chronic obstructive pulmonary disease with (acute) exacerbation; Z68.1 Body mass index [BMI] 19.9 or less, adult; S01.01XA Laceration without foreign body of scalp, initial encounter; F17.210 Nicotine dependence, cigarettes, uncomplicated; W18.39XA Other fall on same level, initial encounter; I25.10 Atherosclerotic heart disease of native coronary artery without angina pectoris; J44.9 Chronic obstructive pulmonary disease, unspecified; I73.9 Peripheral vascular disease, unspecified; Z60.2 Problems related to living alone; G47.00 Insomnia, unspecified; R62.7 Adult failure to thrive; R13.10 Dysphagia, unspecified; R41.0 Disorientation, unspecified; Z66 Do not resuscitate; Z95.820 Peripheral vascular angioplasty status with implants and grafts; Z79.01 Long term (current) use of anticoagulants; Z90.13 Acquired absence of bilateral breasts and nipples; Z90.710 Acquired absence of both cervix and uterus; Z88.6 Allergy status to analgesic agent; Z88.1 Allergy status to other antibiotic agents; Z88.2 Allergy status to sulfonamides; Z88.8 Allergy status to other drugs, medicaments and biological substances; Z85.3 Personal history of malignant neoplasm of breast; Z71.6 Tobacco abuse counseling; Z47.89 Encounter for other orthopedic aftercare; Z79.82 Long term (current) use of aspirin; Z79.899 Other long term (current) drug therapy; W10.8XXA Fall (on) (from) other stairs and steps, initial encounter; Y93.89 Activity, other specified; Y92.098 Other place in other non-institutional residence as the place of occurrence of the external cause; Y99.8 Other external cause status; I08.3 Combined rheumatic disorders of mitral, aortic and tricuspid valves; Z20.828 Contact with and (suspected) exposure to other viral communicable diseases
CPT/HCPCS: 10078; 10081; 10203; 27000